=== PATIENT | female | born 1995 | race Caucasian/White ===

== ENCOUNTER 2016-08-24 09:50 | Emergency (ER) | payer BC, MEDICAID ==
[2016-08-24] MEDS ORDERED: Sodium Chloride 0.9% 10 ML Syringe FLUSH PRN (10:06)
[2016-08-24] MEDS ORDERED: Sodium Chloride 0.9% 2.5 ML Syringe FLUSH PRN (10:06)
[2016-08-24] MEDS ORDERED: Sodium Chloride 0.9% 1,000 ML IV SCH (10:15)
[2016-08-24 10:46] LABS: CHLORIDE,CL 111 mmol/L (98-110); SODIUM,NA 141 mmol/L (136-146)
--- NOTE | 2016-08-24 10:47 | EDM.PDOC ---
ED HPI GI/ABDOMINAL - General Chief Complaint: Gastrointestinal Problem Stated Complaint: VOMITING AND BODY ACHES Time Seen by Provider: 08/24/16 09:54 Source of Information: Reports: Patient History Limitations: Reports: No limitations - History of Present Illness INITIAL COMMENTS - FREE TEXT/NARRATIVE: History of present illness: [] Patient started having vomiting and diarrhea last night and has had greater than 10 episodes of vomiting and about 10 episodes of nonbloody watery diarrhea. She has mild abdominal cramping. She is recently and currently is breast feeding. She states she did not measure her temperature but feels like she has had fevers and chills. She's not had any sick contact exposures or eaten any questionable food. Review of systems: As per history of present illness and below otherwise all systems reviewed and negative. Past medical history: As per history of present illness and as reviewed below otherwise noncontributory. Surgical history: As per history of present illness and as reviewed below otherwise noncontributory. Social history: No reported history of drug or alcohol abuse. Family history: As per history of present illness and as reviewed below otherwise noncontributory. Physical exam: General: Well developed, well nourished in NAD HEENT: Atraumatic, normocephalic, pupils reactive, negative for conjunctival pallor or scleral icterus, mucous membranes moist, throat clear, neck supple, nontender, trachea midline. Lungs: Clear to auscultation, breath sounds equal bilaterally, chest nontender. Heart: S1S2, regular, negative for clicks, rubs, or JVD. Abdomen: Soft, nondistended, nontender. Negative for masses or hepatosplenomegaly. Negative for costovertebral tenderness. Pelvis: Stable nontender. Genitourinary: Deferred. Rectal: Deferred. Extremities: Atraumatic, negative for cords or calf pain. Neurovascular unremarkable. Neuro: Awake, alert, oriented. Cranial nerves II through XII unremarkable. Cerebellum unremarkable. Motor and sensory unremarkable throughout. Exam nonfocal. Diagnostics: [] Labs were checked without acute findings Therapeutics: [] Rehydrated with normal saline and Zofran given improvement Impression: [] Acute gastroenteritis Plan: [] Zofran for nausea, increase fluids followup PMD Definitive disposition and diagnosis as appropriate pending reevaluation and review of above. - Related Data Allergies/ADRs: Allergies Allergy/AdvReac Type Severity Reaction Status Date / Time amoxicillin Allergy Anaphylactic Verified 08/24/16 10:03 Shock coconut Allergy Itching Uncoded 11/25/15 19:47 Home Meds: Home Meds Levonorgestrel [Mirena] 1 dose IMPLANT ASDIRECTED 08/24/16 [History] Ondansetron [Zofran ODT] 4 mg PO Q8H PRN #10 tab.dis 08/24/16 [Rx] Past Medical History - Past Health History Medical/Surgical History: Denies Medical/Surgical History Cardiovascular History: Reports: Heart murmur Other Cardiovascular History: hx of pre eclampsia Respiratory History: Reports: Asthma Gastrointestinal History: Reports: None Genitourinary History: Reports: None 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: Musculoskeletal History: Reports: None Neurological History: Reports: None Psychiatric History: Reports: None Endocrine/Metabolic History: Reports: None Other Hematologic History: hx of hemorrhage Immunologic History: Reports: None Oncologic (Cancer) History: Reports: None Dermatologic History: Reports: None - Infectious Disease History Infectious Disease History: Reports: Chicken pox, MRSA - Past Surgical History Head Surgeries/Procedures: Reports: None HEENT Surgical History: Reports: Oral surgery, Tonsillectomy Social & Family History - Family History Family Medical History: Noncontributory HEENT: Reports: None OBGYN: Reports: - Tobacco Use Smoking Status *Q: Current Every Day Smoker Years of Tobacco use: 4 Packs/Tins Daily: 0.5 Used Tobacco, but Quit: No Month Tobacco Last Used: 5 years Second Hand Smoke Exposure: Yes - Caffeine Use Caffeine Use: Reports: None - Alcohol Use Days Per Week of Alcohol Use: 0 - Recreational Drug Use Recreational Drug Use: No ED ROS GENERAL - Review of Systems Review Of Systems: See Below (See history of present illness) ED EXAM, GI/ABD - Physical Exam Exam: See Below (See history of present illness) Course - Vital Signs Last Recorded V/S: Last Vital Signs Temp 36.3 C 08/24/16 10:01 Pulse 101 H 08/24/16 10:01 Resp 16 08/24/16 10:01 BP 121/69 08/24/16 10:01 Pulse Ox 99 08/24/16 10:01 - Orders/Labs/Meds Orders: Active Orders 24 hr Category Date Time Status UA W/MICROSCOPIC [URIN] Stat Lab 08/24/16 11:17 Results Sodium Chloride 0.9% [Normal Saline] 1,000 ml Med 08/24/16 10:15 Active IV .BOLUS Sodium Chloride 0.9% [Saline Flush] Med 08/24/16 10:06 Active 10 ml FLUSH ASDIRECTED PRN Sodium Chloride 0.9% [Saline Flush] Med 08/24/16 10:06 Active 2.5 ml FLUSH ASDIRECTED PRN Peripheral IV Insertion Adult [OM.PC] Stat Oth 08/24/16 10:06 Ordered Medication Orders Sodium Chloride (Normal Saline) 1,000 mls @ 999 mls/hr IV .BOLUS JAMIA Last Admin: 08/24/16 10:21 Dose: 999 mls/hr Sodium Chloride (Saline Flush) 10 ml FLUSH ASDIRECTED PRN PRN Reason: Keep Vein Open Sodium Chloride (Saline Flush) 2.5 ml FLUSH ASDIRECTED PRN PRN Reason: Keep Vein Open Labs: Laboratory Tests 08/24/16 08/24/16 08/24/16 Range/Units 10:17 10:17 11:17 WBC 6.37 (4.0-11.0) K/uL RBC 4.43 (4.30-5.90) M/uL Hgb 11.2 L (12.0-16.0) g/dL Hct 34.9 L (36.0-46.0) % MCV 78.8 L (80.0-98.0) fL MCH 25.3 L (27.0-32.0) pg MCHC 32.1 (31.0-37.0) g/dL RDW Std Deviation 52.6 (28.0-62.0) fl RDW Coeff of Adria 18 H (11.0-15.0) % Plt Count 227 (150-400) K/uL MPV 9.70 (7.40-12.00) fL Neut % (Auto) 83.3 H (48.0-80.0) % Lymph % (Auto) 11.9 L (16.0-40.0) % Pepin % (Auto) 3.9 (0.0-15.0) % Eos % (Auto) 0.6 (0.0-7.0) % Baso % (Auto) 0.3 (0.0-1.5) % Neut # 5.3 (1.4-5.7) K/uL Lymph # 0.8 (0.6-2.4) K/uL Pepin # 0.3 (0.0-0.8) K/uL Eos # 0.0 (0.0-0.7) K/uL Baso # 0.0 (0.0-0.1) K/uL Nucleated RBC % 0.0 /100WBC Nucleated RBCs # 0 K/uL Sodium 141 (136-146) mmol/L Potassium 4.1 (3.5-5.1) mmol/L Chloride 111 H (98-110) mmol/L Carbon Dioxide 21 (21-31) mmol/L BUN 8 (6.0-23.0) mg/dL Creatinine 0.8 (0.6-1.5) mg/dL Est Cr Clr Drug Dosing 91.24 mL/min Estimated GFR (MDRD) > 60.0 ml/min Glucose 96 (60-110) mg/dL Calcium 9.0 (8.8-10.8) mg/dL Total Bilirubin 0.3 (0.1-1.5) mg/dL AST 14 (5-40) IU/L ALT 20 (8-54) IU/L Alkaline Phosphatase 77 (40-150) Total Protein 7.4 (6.0-8.0) g/dL Albumin 4.5 (3.5-5.0) g/dL Globulin 2.9 (2.0-3.5) g/dL Albumin/Globulin Ratio 1.6 (1.3-2.8) Urine Color YELLOW Urine Appearance CLEAR Urine pH 7.0 (5.0-8.0) Ur Specific [place] 1.020 (1.001-1.035) Urine Protein NEGATIVE (NEGATIVE) mg/dL Urine Glucose (UA) NEGATIVE (NEGATIVE) mg/dL Urine Ketones NEGATIVE (NEGATIVE) mg/dL Urine Occult Blood TRACE-INTACT (NEGATIVE) Urine Nitrite NEGATIVE (NEGATIVE) Urine Bilirubin NEGATIVE (NEGATIVE) Urine Urobilinogen 0.2 (<2.0) EU/dL Ur Leukocyte Esterase NEGATIVE (NEGATIVE) Meds: Medications Generic Name Dose Route Start Last Admin Trade Name Freq PRN Reason Stop Dose Admin Sodium Chloride 1,000 mls @ 999 mls/hr 08/24/16 10:15 08/24/16 10:21 Normal Saline IV 999 mls/hr .BOLUS JAMIA Administration Sodium Chloride 10 ml 08/24/16 10:06 Saline Flush FLUSH ASDIRECTED PRN Keep Vein Open Sodium Chloride 2.5 ml 08/24/16 10:06 Saline Flush FLUSH ASDIRECTED PRN Keep Vein Open Departure - Departure Time of Disposition: 11:42 Disposition: Home, Self-Care 01 Condition: good Clinical Impression: AGE (acute gastroenteritis) Prescriptions: Ondansetron [Zofran ODT] 4 mg PO Q8H PRN #10 tab.dis PRN Reason: Nausea Instructions: Viral Gastroenteritis, Adult, [id number] Referrals: Shandra Grimes LINE DECORATOR [Primary Care Provider] - Forms: ED Department Discharge Additional Instructions: The following information is given to patients seen in the emergency department who are being discharged to home. This information is to outline your options for follow-up care. We provide all patients seen in our emergency department with a follow-up referral. The need for follow-up, as well as the timing and circumstances, are variable depending upon the specifics of your emergency department visit. If you don't have a primary care physician on staff, we will provide you with a referral. We always advise you to contact your personal physician following an emergency department visit to inform them of the circumstance of the visit and for follow-up with them and/or the need for any referrals to a consulting specialist. The emergency department will also refer you to a specialist when appropriate. This referral assures that you have the opportunity for follow-up care with a specialist. All of these measure are taken in an effort to provide you with optimal care, which includes your follow-up. Under all circumstances we always encourage you to contact your private physician who remains a resource for coordinating your care. When calling for follow-up care, please make the office aware that this follow-up is from your recent emergency room visit. If for any reason you are refused follow-up, please contact the [facility] Emergency Department at and asked to speak to the emergency department charge nurse. Zofran 4 mg every 8 when necessary [address] [facility] [address] [place] [id number] - My Orders Last 24 Hours: My Active Orders 08/24/16 10:06 Sodium Chloride 0.9% [Saline Flush] 10 ml FLUSH ASDIRECTED PRN Sodium Chloride 0.9% [Saline Flush] 2.5 ml FLUSH ASDIRECTED PRN Peripheral IV Insertion Adult [OM.PC] Stat 08/24/16 10:15 Sodium Chloride 0.9% [Normal Saline] 1,000 ml IV .BOLUS 08/24/16 11:17 UA W/MICROSCOPIC [URIN] Stat - Assessment/Plan Last 24 Hours: My Active Orders 08/24/16 10:06 Sodium Chloride 0.9% [Saline Flush] 10 ml FLUSH ASDIRECTED PRN Sodium Chloride 0.9% [Saline Flush] 2.5 ml FLUSH ASDIRECTED PRN Peripheral IV Insertion Adult [OM.PC] Stat 08/24/16 10:15 Sodium Chloride 0.9% [Normal Saline] 1,000 ml IV .BOLUS 08/24/16 11:17 UA W/MICROSCOPIC [URIN] Stat
[2016-08-24 11:48] VITALS: BP 115/62
== END 2016-08-24 11:50 | disposition home or self-care (01) ==
LOC: MW.ED 09:50
DX: K52.9 Noninfective gastroenteritis and colitis, unspecified (principal); F17.210 Nicotine dependence, cigarettes, uncomplicated; Z88.0 Allergy status to penicillin; Z91.018 Allergy to other foods; Z98.890 Other specified postprocedural states
CPT/HCPCS: 36415; 80053; 81001; 85025; 87804; 96360; 99284; J7040; 99283

== ENCOUNTER 2016-09-26 12:01 | Emergency (ER) | payer BC ==
[2016-09-26] MEDS ORDERED: Ondansetron 4 MG Tab.DIS PO ONE (12:39)
--- NOTE | 2016-09-26 13:17 | EDM.PDOC ---
ED HPI GI/ABDOMINAL - General Chief Complaint: Gastrointestinal Problem Stated Complaint: Diarrhea, vomiting Time Seen by Provider: 09/26/16 12:35 Source of Information: Reports: Patient History Limitations: Reports: No limitations - History of Present Illness INITIAL COMMENTS - FREE TEXT/NARRATIVE: HISTORY AND PHYSICAL: History of present illness: [Patient comes to the emergency room complaining of nausea vomiting and diarrhea since 3 AM this morning. She felt well last evening and when she went to bed. Her symptoms came on suddenly. Her stools are quite watery. She admits to having 10 episodes of vomiting since 3 AM. She's had no fever or chills, chest pain, cough, runny nose shortness of breath or difficulty breathing. She' s not had any infections or illnesses recently. She has 3 children at home none of them have similar symptoms. She and her family ate at home last night and they like the symptoms. She admits to some mild lower abdominal cramping prior to loose stools. No breathing with urination, hematuria or urinary frequency. She is currently breast-feeding her 4-month-old.] Review of systems: As per history of present illness and below otherwise all systems reviewed and negative. Past medical history: As per history of present illness and as reviewed below otherwise noncontributory. Surgical history: As per history of present illness and as reviewed below otherwise noncontributory. Social history: No reported history of drug or alcohol abuse. Family history: As per history of present illness and as reviewed below otherwise noncontributory. Physical exam: HEENT: Atraumatic, normocephalic. TMs are pearly sky and without effusion bilaterally. Oral mucous members are pink and moist. no tonsillar swelling erythema or exudate. Her lips are pink and not cracked. neck supple, nontender, trachea midline. No lymphadenopathy. Lungs: Clear to auscultation, breath sounds equal bilaterally. Heart: S1S2, regular rate rhythm. No murmur click or rub. Abdomen: Bowel sounds are quiet but normal active. Abdomen is Soft, nondistended , nontender. Negative for masses guarding or rebound. Negative for costovertebral tenderness. Genitourinary: Deferred. Rectal: Deferred. Extremities: Atraumatic, negative for cords or calf pain. No cyanosis or edema to feet or lower legs. Neurovascular unremarkable. Neuro: Awake, alert, oriented. Exam nonfocal. Therapeutics: [Zofran ODT 4 mg by mouth] Impression: [Gastroenteritis] Plan: [Patient's nausea completely resolved with one dose of Zofran. Discussed with patient that her symptoms appear to be viral in nature, likely a gastroenteritis. She's given a prescription for Zofran 4 mg ODT #20 sig one by mouth every 6 hours as needed for nausea. zero refills. Push fluids, clear liquid diet and may gradually increase as tolerated. Anticipate that symptoms will completely resolve in the next couple of days without complication. She's agreement with today's plan. All of her questions are answered and concerns are addressed.] Definitive disposition and diagnosis as appropriate pending reevaluation and review of above. - Related Data Allergies/ADRs: Allergies Allergy/AdvReac Type Severity Reaction Status Date / Time amoxicillin Allergy Anaphylactic Verified 09/26/16 12:21 Shock coconut Allergy Itching Uncoded 09/26/16 12:21 Home Meds: Home Meds . 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: Musculoskeletal History: Reports: None Neurological History: Reports: None Psychiatric History: Reports: None Endocrine/Metabolic History: Reports: None Other Hematologic History: hx of hemorrhage Immunologic History: Reports: None Oncologic (Cancer) History: Reports: None Dermatologic History: Reports: None - Infectious Disease History Infectious Disease History: Reports: Chicken pox, MRSA - Past Surgical History Head Surgeries/Procedures: Reports: None HEENT Surgical History: Reports: Oral surgery, Tonsillectomy Social & Family History - Family History Family Medical History: Noncontributory HEENT: Reports: None OBGYN: Reports: - Tobacco Use Smoking Status *Q: Current Every Day Smoker Years of Tobacco use: 3 Packs/Tins Daily: 1 Used Tobacco, but Quit: No Month Tobacco Last Used: 5 years Second Hand Smoke Exposure: Yes - Caffeine Use Caffeine Use: Reports: Coffee - Alcohol Use Days Per Week of Alcohol Use: 0 - Recreational Drug Use Recreational Drug Use: No ED ROS GENERAL - Review of Systems Review Of Systems: ROS reveals no pertinent complaints other than HPI. ED EXAM, GI/ABD - Physical Exam Exam: See Below Course - Vital Signs Last Recorded V/S: Last Vital Signs Temp 97.8 F 09/26/16 12:22 Pulse 92 09/26/16 12:22 Resp 24 H 09/26/16 12:22 BP 126/67 09/26/16 12:22 Pulse Ox 99 09/26/16 12:22 - Orders/Labs/Meds Meds: Medications Discontinued Medications Generic Name Dose Route Start Last Admin Trade Name Jonn PRN Reason Stop Dose Admin Ondansetron HCl 4 mg 09/26/16 12:39 09/26/16 12:57 Zofran Odt PO 09/26/16 12:40 4 mg ONETIME ONE Administration Departure - Departure Time of Disposition: 13:20 Disposition: Home, Self-Care 01 Condition: good Clinical Impression: Gastroenteritis Forms: ED Department Discharge Additional Instructions: The following information is given to patients seen in the emergency department who are being discharged to home. This information is to outline your options for follow-up care. We provide all patients seen in our emergency department with a follow-up referral. The need for follow-up, as well as the timing and circumstances, are variable depending upon the specifics of your emergency department visit. If you don't have a primary care physician on staff, we will provide you with a referral. We always advise you to contact your personal physician following an emergency department visit to inform them of the circumstance of the visit and for follow-up with them and/or the need for any referrals to a consulting specialist. The emergency department will also refer you to a specialist when appropriate. This referral assures that you have the opportunity for follow-up care with a specialist. All of these measure are taken in an effort to provide you with optimal care, which includes your follow-up. Under all circumstances we always encourage you to contact your private physician who remains a resource for coordinating your care. When calling for follow-up care, please make the office aware that this follow-up is from your recent emergency room visit. If for any reason you are refused follow-up, please contact the [facility] emergency department at and asked to speak to the emergency department charge nurse. [facility] [address] [place] [id number] Followup with your primary care provider at the clinic listed above in 48-72 hours. Continue to push fluids until nausea has resolved then you may gradually increase diet. Imodium as needed for diarrhea. Return to ER as needed as discussed.
[2016-09-26 13:29] VITALS: BP 126/70
== END 2016-09-26 13:27 | disposition home or self-care (01) ==
LOC: MW.ED 12:01
DX: K52.9 Noninfective gastroenteritis and colitis, unspecified (principal); F17.210 Nicotine dependence, cigarettes, uncomplicated; Z88.0 Allergy status to penicillin; Z91.018 Allergy to other foods; Z98.890 Other specified postprocedural states; Z90.89 Acquired absence of other organs
CPT/HCPCS: 99283; A9270

== ENCOUNTER 2017-12-04 20:06 | Emergency (ER) | payer BC, MEDICAID ==
--- NOTE | 2017-12-04 20:09 | EDM.PDOC ---
ED HPI GENERAL MEDICAL PROBLEM - General Chief Complaint: Lower Extremity Injury/Pain Stated Complaint: BROKE HER TOE Time Seen by Provider: 12/04/17 20:08 Source of Information: Reports: Patient - History of Present Illness INITIAL COMMENTS - FREE TEXT/NARRATIVE: HISTORY AND PHYSICAL: History of present illness: [Patient presents with left fifth toe pain, she has stubbed. toe into her box spring on her bed a couple of times today, she has bruising and pain to the fifth toe unable to bear weight due to pain No other injury or trauma no fever nausea vomiting chills sweats Review of systems: As per history of present illness and below otherwise all systems reviewed and negative. Past medical history: As per history of present illness and as reviewed below otherwise noncontributory. Surgical history: As per history of present illness and as reviewed below otherwise noncontributory. Social history: No reported history of drug or alcohol abuse. Family history: As per history of present illness and as reviewed below otherwise noncontributory. Physical exam: HEENT: Atraumatic, normocephalic, pupils reactive, negative for conjunctival pallor or scleral icterus, mucous membranes moist, throat clear, neck supple, nontender, trachea midline. Lungs: Clear to auscultation, breath sounds equal bilaterally, chest nontender. Heart: S1S2, regular, negative for clicks, rubs, or JVD. Abdomen: Soft, nondistended, nontender. Negative for masses or hepatosplenomegaly. Negative for costovertebral tenderness. Pelvis: Stable nontender. Genitourinary: Deferred. Rectal: Deferred. Extremities: Atraumatic, negative for cords or calf pain. Neurovascular unremarkable. Neuro: Awake, alert, oriented. Cranial nerves II through XII unremarkable. Cerebellum unremarkable. Motor and sensory unremarkable throughout. Exam nonfocal. Diagnostics: [Left foot complete ] Therapeutics: [Postop shoe/selma tape Rest ice ibuprofen Tramadol Crutches as needed ] Impression: [Fracture fifth toe ] Definitive disposition and diagnosis as appropriate pending reevaluation and review of above. Left 5-Little toe Pain Score (Numeric/FACES): 10 - Related Data Allergies Allergy/AdvReac Type Severity Reaction Status Date / Time amoxicillin Allergy Anaphylactic Verified 09/26/16 12:21 Shock coconut Allergy Itching Uncoded 09/26/16 12:21 Home Meds: Home Meds . 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: Musculoskeletal History: Reports: None Neurological History: Reports: None Psychiatric History: Reports: None Endocrine/Metabolic History: Reports: None Other Hematologic History: hx of hemorrhage Immunologic History: Reports: None Oncologic (Cancer) History: Reports: None Dermatologic History: Reports: None - Infectious Disease History Infectious Disease History: Reports: Chicken Pox, MRSA - Past Surgical History HEENT Surgical History: Reports: Oral Surgery, Tonsillectomy Social & Family History - Family History Family Medical History: Noncontributory HEENT: Reports: None OBGYN: Reports: - Caffeine Use Caffeine Use: Reports: Coffee Review of Systems - Review of Systems Review Of Systems: See Below ED EXAM, GENERAL - Physical Exam Exam: See Below Course - Vital Signs Last Recorded V/S: Last Vital Signs Temp 97.8 F 12/04/17 20:24 Pulse 105 H 12/04/17 20:24 Resp 18 12/04/17 20:24 BP 129/88 12/04/17 20:24 Pulse Ox 98 12/04/17 20:24 - Orders/Labs/Meds Orders: Active Orders 24 hr Category Date Time Status Foot Comp Min 3V Lt [CR] Stat Exams 12/04/17 20:08 Taken Departure - Departure Time of Disposition: 21:09 Disposition: Home, Self-Care 01 Condition: Good Clinical Impression: Toe fracture, left - Discharge Information Forms: ED Department Discharge Additional Instructions: Postop shoe/crutches when necessary/selma tape Rest Ice 20 minute intervals 3 times daily as needed Ibuprofen 400 mg 3 times daily 7-10 daMedication as prescribed Follow-up with orthopedist, call number below to schedule appropriate follow- up [facility] [address], [address] [place] [address] my orthopedic The following information is given to patients seen in the emergency department who are being discharged to home. This information is to outline your options for follow-up care. We provide all patients seen in our emergency department with a follow-up referral. The need for follow-up, as well as the timing and circumstances, are variable depending upon the specifics of your emergency department visit. If you don't have a primary care physician on staff, we will provide you with a referral. We always advise you to contact your personal physician following an emergency department visit to inform them of the circumstance of the visit and for follow-up with them and/or the need for any referrals to a consulting specialist. The emergency department will also refer you to a specialist when appropriate. This referral assures that you have the opportunity for follow-up care with a specialist. All of these measure are taken in an effort to provide you with optimal care, which includes your follow-up. Under all circumstances we always encourage you to contact your private physician who remains a resource for coordinating your care. When calling for follow-up care, please make the office aware that this follow-up is from your recent emergency room visit. If for any reason you are refused follow-up, please contact the [facility] emergency department at and asked to speak to the emergency department charge nurse. - My Orders Last 24 Hours: My Active Orders 12/04/17 20:08 Foot Comp Min 3V Lt [CR] Stat - Assessment/Plan Last 24 Hours: My Active Orders 12/04/17 20:08 Foot Comp Min 3V Lt [CR] Stat
[2017-12-04] MEDS ORDERED: traMADol 50 MG Tab PO ONE (21:11)
[2017-12-04 21:45] VITALS: BP 129/78
--- NOTE | 2017-12-05 16:19 | CR ---
EXAM DATE: 12/04/17 PATIENT'S AGE: 22 Patient: MARITA DELUNA Facility: [place], [place] Site . Site : 1995 Study: XRay Extremity Left foot [id number]/[id number] 8:52:19 PM Ordering Physician: Lizbeth Rodas Final Report: INDICATION: Foot injury. TECHNIQUE: Three views left foot. COMPARISON: None FINDINGS: Bones: No acute fracture. No dislocation. No suspicious bone lesion. Joint spaces: Unremarkable. Soft tissues: Unremarkable. IMPRESSION: No acute osseous abnormality. Dictated by Modesto Dixon MD @ Dec 04 2017 9:03PM (Electronic Signature) Report Signed by Proxy. KARI
== END 2017-12-04 21:36 | disposition home or self-care (01) ==
LOC: MW.ED 20:06
DX: S92.502A Displaced unspecified fracture of left lesser toe(s), initial encounter for closed fracture (principal); Z88.1 Allergy status to other antibiotic agents; Z91.048 Other nonmedicinal substance allergy status; W22.8XXA Striking against or struck by other objects, initial encounter
CPT/HCPCS: 73630-26-LT; 73630-LT; 99282; 99283

== ENCOUNTER 2018-02-21 15:30 | Emergency (ER) | payer BC ==
[2018-02-21 15:56] VITALS: BP 101/73
[2018-02-21] MEDS ORDERED: Ondansetron 4 MG/2 ML SDV IVPUSH ONE (16:02)
[2018-02-21] MEDS ORDERED: Sodium Chloride 0.9% 1,000 ML IV ONE (16:02)
--- NOTE | 2018-02-21 16:31 | EDM.PDOC ---
ED HPI GENERAL MEDICAL PROBLEM - General Chief Complaint: General Stated Complaint: 7 WKS PRAG AND CANT KEEP ANYTHING DOWN Time Seen by Provider: 02/21/18 15:48 Source of Information: Reports: Patient History Limitations: Reports: No Limitations - History of Present Illness INITIAL COMMENTS - FREE TEXT/NARRATIVE: HISTORY AND PHYSICAL: History of present illness: Patient is a 23-year-old female who presents to the emergency room today with complaints of nausea and vomiting during . Patient reports she is approximately 7 weeks and does see [facility] the [facility]. She offers no other systemic complaints. She denies any fever, chills, chest pain, shortness of breath or cough. Denies any abdominal pain, nausea, vomiting, diarrhea or dysuria. Denies any vaginal bleeding or cramping. 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 She was concerned she may be dehydrated and was "tired of the vomiting". LMP January 01, 2018. , P: 3 Primary OBGYN: Kaykay Martinez Nurse Inspector Tubes Review of systems: As per history of present illness and below otherwise all systems reviewed and negative. Past medical history: As per history of present illness and as reviewed below otherwise noncontributory. Surgical history: As per history of present illness and as reviewed below otherwise noncontributory. Social history: No reported history of drug or alcohol abuse. Family history: As per history of present illness and as reviewed below otherwise noncontributory. Physical exam: General: Well-developed and well-nourished 23-year-old female. Alert and oriented. Nontoxic appearing and in no acute distress. HEENT: Atraumatic, normocephalic, pupils equal and reactive bilaterally, negative for conjunctival pallor or scleral icterus, mucous membranes moist, throat clear, neck supple, nontender, trachea midline. No drooling or trismus noted. No meningeal signs Lungs: Clear to auscultation, breath sounds equal bilaterally, chest nontender. Heart: S1S2, regular rate and rhythm without overt murmur Abdomen: Soft, nondistended, nontender. Negative for masses or hepatosplenomegaly. Negative for costovertebral tenderness. Pelvis: Stable nontender. Genitourinary: Deferred. Rectal: Deferred. Skin: Intact, warm, dry. No lesions or rashes noted. Extremities: Atraumatic, negative for cords or calf pain. Neurovascular unremarkable. Neuro: Awake, alert, oriented. Cranial nerves II through XII unremarkable. Cerebellum unremarkable. Motor and sensory unremarkable throughout. Exam nonfocal. Notes: Patient states other than the nausea and vomiting she has no other health concerns at this time. I will do IV fluids and Zofran. Do not feel a need for or labs at this time. She states she has had morning sickness with her previous pregnancies. Vital signs are stable. Patient feels somewhat improved after receiving IV fluids and Zofran. She states she does have some Zofran, tablet formula, at home but is unable to keep these down. She is requesting that I give her Zofran ODT. These will be electronically sent in the pharmacy. She states she is ready for discharged and will follow up with Kaykay Ramírez within the next couple days. Denies any further questions or concerns at this time. Diagnostics: None Therapeutics: IV fluids, Zofran Prescription: Zofran ODT PRN, #15 Impression: Nausea and Vomiting in 1st Trimester Plan: 1. Small frequent sips of fluids to prevent dehydration 2. Tylenol as needed for pain 3. Follow up with Kaykay Martinez as arranged or sooner if needed. Return to the ED as needed and as discussed. Definitive disposition and diagnosis as appropriate pending reevaluation and review of above. Onset: Today - Related Data Allergies Allergy/AdvReac Type Severity Reaction Status Date / Time amoxicillin Allergy Anaphylactic Verified 02/21/18 15:41 Shock coconut Allergy Itching Uncoded 02/21/18 15:41 Home Meds: Home Meds Ondansetron [Zofran ODT] 4 mg PO DAILY 02/21/18 [History] Ondansetron [Zofran ODT] 4 mg PO Q6H PRN #15 tab.dis 02/21/18 [Rx] Past Medical History - Past Health History Medical/Surgical History: Denies Medical/Surgical History Cardiovascular History: Reports: Heart Failure, Heart Murmur Other Cardiovascular History: hx of pre eclampsia Respiratory History: Reports: Asthma Gastrointestinal History: Reports: None Genitourinary History: Reports: None WASTE TREATMENT OPERATOR History: Reports: Musculoskeletal History: Reports: None Neurological History: Reports: None Psychiatric History: Reports: None Endocrine/Metabolic History: Reports: None Other Hematologic History: hx of hemorrhage Immunologic History: Reports: None Oncologic (Cancer) History: Reports: None Dermatologic History: Reports: None - Infectious Disease History Infectious Disease History: Reports: MRSA - Past Surgical History Head Surgeries/Procedures: Reports: None HEENT Surgical History: Reports: Oral Surgery, Tonsillectomy Cardiovascular Surgical History: Reports: None GI Surgical History: Reports: None Female Surgical History: Reports: None Social & Family History - Family History Family Medical History: Noncontributory HEENT: Reports: None OBGYN: Reports: - Tobacco Use Smoking Status *Q: Current Every Day Smoker Years of Tobacco use: 6 Packs/Tins Daily: 0.5 Second Hand Smoke Exposure: Yes - Caffeine Use Caffeine Use: Reports: Coffee, Soda - Recreational Drug Use Recreational Drug Use: No ED ROS GENERAL - Review of Systems Review Of Systems: ROS reveals no pertinent complaints other than HPI. ED EXAM, GENERAL - Physical Exam Exam: See Below (See dictation) Course - Vital Signs Last Recorded V/S: Last Vital Signs Temp 97.6 F 02/21/18 15:42 Pulse 88 02/21/18 15:42 Resp 14 02/21/18 15:42 BP 101/73 02/21/18 15:56 Pulse Ox 99 02/21/18 15:42 - Orders/Labs/Meds Meds: Medications Discontinued Medications Generic Name Dose Route Start Last Admin Trade Name Freq PRN Reason Stop Dose Admin Sodium Chloride 1,000 mls @ 999 mls/hr 02/21/18 16:02 02/21/18 16:33 Normal Saline IV 02/21/18 17:02 999 mls/hr STAT ONE Administration Ondansetron HCl 4 mg 02/21/18 16:02 02/21/18 16:33 Zofran IVPUSH 02/21/18 16:03 4 mg ONETIME ONE Administration Departure - Departure Time of Disposition: 16:27 Disposition: Home, Self-Care 01 Clinical Impression: Nausea and vomiting in - Discharge Information Prescriptions: Ondansetron [Zofran ODT] 4 mg PO Q6H PRN #15 tab.dis PRN Reason: Nausea Instructions: Morning Sickness, [id number] Referrals: PCP,None [Primary Care Provider] - Forms: ED Department Discharge Additional Instructions: The following information is given to patients seen in the emergency department who are being discharged to home. This information is to outline your options for follow-up care. We provide all patients seen in our emergency department with a follow-up referral. The need for follow-up, as well as the timing and circumstances, are variable depending upon the specifics of your emergency department visit. If you don't have a primary care physician on staff, we will provide you with a referral. We always advise you to contact your personal physician following an emergency department visit to inform them of the circumstance of the visit and for follow-up with them and/or the need for any referrals to a consulting specialist. The emergency department will also refer you to a specialist when appropriate. This referral assures that you have the opportunity for follow-up care with a specialist. All of these measure are taken in an effort to provide you with optimal care, which includes your follow-up. Under all circumstances we always encourage you to contact your private physician who remains a resource for coordinating your care. When calling for follow-up care, please make the office aware that this follow-up is from your recent emergency room visit. If for any reason you are refused follow-up, please contact the [facility] Emergency Department at and asked to speak to the emergency department charge nurse. [facility] Primary Care: [facility] [address] [place] [phone] 1. Small frequent sips of fluids to prevent dehydration 2. Tylenol as needed for pain 3. Follow up with Kaykay Martinez as arranged or sooner if needed. Return to the ED as needed and as discussed.
== END 2018-02-21 17:44 | disposition home or self-care (01) ==
LOC: MW.ED 15:30
DX: O21.9 Vomiting of pregnancy, unspecified (principal); O99.411 Diseases of the circulatory system complicating pregnancy, first trimester; I50.9 Heart failure, unspecified; O99.331 Smoking (tobacco) complicating pregnancy, first trimester; F17.210 Nicotine dependence, cigarettes, uncomplicated; Z88.1 Allergy status to other antibiotic agents; Z91.018 Allergy to other foods; Z3A.01 Less than 8 weeks gestation of pregnancy
CPT/HCPCS: 96361; 96374; 99283; J2405; J7040

== ENCOUNTER 2018-03-02 14:56 | Emergency (ER) | payer BC ==
[2018-03-02] MEDS ORDERED: Sodium Chloride 0.9% 10 ML Syringe FLUSH PRN (15:29)
[2018-03-02] MEDS ORDERED: Sodium Chloride 0.9% 2.5 ML Syringe FLUSH PRN (15:29)
[2018-03-02] MEDS ORDERED: Sodium Chloride 0.9% 1,000 ML IV ONE (15:30)
--- NOTE | 2018-03-02 15:38 | EDM.PDOC ---
ED HPI GENERAL MEDICAL PROBLEM - General Chief Complaint: Syncope Stated Complaint: PASSED OUT Time Seen by Provider: 03/02/18 15:05 Source of Information: Reports: Patient History Limitations: Reports: No Limitations - History of Present Illness INITIAL COMMENTS - FREE TEXT/NARRATIVE: History of present illness: []Patient was showering this morning got soap in her eyes and then passed out. She states she woke up slumped over the rim of the tub. She complains of lower abdominal pain and she is weeks . Patient states she has a headache She denies any vaginal bleeding, vomiting, diarrhea or recent illnesses. She was here last week with dehydration and hyperemesis. Review of systems: As per history of present illness and below otherwise all systems reviewed and negative. Past medical history: As per history of present illness and as reviewed below otherwise noncontributory. Surgical history: As per history of present illness and as reviewed below otherwise noncontributory. Social history: No reported history of drug or alcohol abuse. Family history: As per history of present illness and as reviewed below otherwise noncontributory. Physical exam: General: Well developed, well nourished in NAD HEENT: Atraumatic, normocephalic, pupils reactive, negative for conjunctival pallor or scleral icterus, mucous membranes moist, throat clear, neck supple, nontender, trachea midline. Lungs: Clear to auscultation, breath sounds equal bilaterally, chest nontender. Heart: S1S2, regular, negative for clicks, rubs, or JVD. Abdomen: Soft, nondistended, nontender. Negative for masses or hepatosplenomegaly. Negative for costovertebral tenderness. Pelvis: Stable nontender. Genitourinary: Deferred. Rectal: Deferred. Extremities: Atraumatic, negative for cords or calf pain. Neurovascular unremarkable. Neuro: Awake, alert, oriented. Cranial nerves II through XII unremarkable. Cerebellum unremarkable. Motor and sensory unremarkable throughout. Exam nonfocal. Skin:warm and dry Diagnostics: CBC, CMP, UA, hCG Quant, the statics, ultrasound OB limited Therapeutics: IV fluids ED Course: Unremarkable Impression: Vasovagal syncope Prescriptions: None Plan: Follow up with OB as directed. Definitive disposition and diagnosis as appropriate pending reevaluation and review of above. head Pain Score (Numeric/FACES): 6 - Related Data Allergies Allergy/AdvReac Type Severity Reaction Status Date / Time amoxicillin Allergy Anaphylactic Verified 03/02/18 15:10 Shock coconut Allergy Itching Uncoded 03/02/18 15:10 Home Meds: Home Meds Ondansetron [Zofran ODT] 4 mg PO Q6H PRN #15 tab.dis 02/21/18 [Rx] Xlb703/FA/Omega3/Dha/Fish Oil [ Gummies] 1 each PO DAILY 03/02/18 [ History] Past Medical History - Past Health History Medical/Surgical History: Denies Medical/Surgical History Cardiovascular History: Reports: Heart Failure, Heart Murmur Other Cardiovascular History: hx of pre eclampsia Respiratory History: Reports: Asthma Gastrointestinal History: Reports: None Genitourinary History: Reports: None 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: Reports: Musculoskeletal History: Reports: None Neurological History: Reports: None Psychiatric History: Reports: None Endocrine/Metabolic History: Reports: None Other Hematologic History: hx of hemorrhage Immunologic History: Reports: None Oncologic (Cancer) History: Reports: None Dermatologic History: Reports: None - Infectious Disease History Infectious Disease History: Reports: None - Past Surgical History Head Surgeries/Procedures: Reports: None HEENT Surgical History: Reports: Oral Surgery, Tonsillectomy Cardiovascular Surgical History: Reports: None GI Surgical History: Reports: None Female Surgical History: Reports: None Social & Family History - Family History Family Medical History: Noncontributory HEENT: Reports: None OBGYN: Reports: - Tobacco Use Smoking Status *Q: Current Every Day Smoker Years of Tobacco use: 14 Packs/Tins Daily: 0.5 - Caffeine Use Caffeine Use: Reports: Coffee, Soda - Recreational Drug Use Recreational Drug Use: No ED ROS GENERAL - Review of Systems Review Of Systems: ROS reveals no pertinent complaints other than HPI. ED EXAM - Physical Exam Exam: See Below (See history of present illness) Course - Vital Signs Last Recorded V/S: Last Vital Signs Temp 96.4 F 03/02/18 15:12 Pulse 93 03/02/18 15:12 Resp 20 03/02/18 15:12 BP 130/71 03/02/18 15:12 Pulse Ox 99 03/02/18 15:12 Orthostatic Blood Pressure [ 123/66 Sitting] Orthostatic Blood Pressure [ 115/60 Supine] Orthostatic Blood Pressure [ 123/73 Standing] - Orders/Labs/Meds Orders: Active Orders 24 hr Category Date Time Status EKG Documentation Completion [RC] STAT Care 03/02/18 15:36 Active Orthostatic Vital Signs [RC] ASDIRECTED Care 03/02/18 15:35 Active OB Ltd 1 or More Fetus [US] Stat Exams 03/02/18 15:29 Taken Sodium Chloride 0.9% [Saline Flush] Med 03/02/18 15:29 Active 10 ml FLUSH ASDIRECTED PRN Sodium Chloride 0.9% [Saline Flush] Med 03/02/18 15:29 Active 2.5 ml FLUSH ASDIRECTED PRN Saline Lock Insert [OM.PC] Stat Oth 03/02/18 15:28 Ordered Medication Orders Sodium Chloride (Saline Flush) 10 ml FLUSH ASDIRECTED PRN PRN Reason: Keep Vein Open Sodium Chloride (Saline Flush) 2.5 ml FLUSH ASDIRECTED PRN PRN Reason: Keep Vein Open Labs: Laboratory Tests 03/02/18 03/02/18 03/02/18 Range/Units 15:20 15:20 15:26 WBC 10.59 (4.0-11.0) K/uL RBC 4.44 (4.30-5.90) M/uL Hgb 14.3 (12.0-16.0) g/dL Hct 39.8 (36.0-46.0) % MCV 89.6 (80.0-98.0) fL MCH 32.2 H (27.0-32.0) pg MCHC 35.9 (31.0-37.0) g/dL RDW Std Deviation 42.1 (28.0-62.0) fl RDW Coeff of Adria 13 (11.0-15.0) % Plt Count 237 (150-400) K/uL MPV 9.50 (7.40-12.00) fL Neut % (Auto) 74.0 (48.0-80.0) % Lymph % (Auto) 19.4 (16.0-40.0) % [place] % (Auto) 5.5 (0.0-15.0) % Eos % (Auto) 0.8 (0.0-7.0) % Baso % (Auto) 0.3 (0.0-1.5) % Neut # (Auto) 7.8 H (1.4-5.7) K/uL Lymph # (Auto) 2.1 (0.6-2.4) K/uL [place] # (Auto) 0.6 (0.0-0.8) K/uL Eos # (Auto) 0.1 (0.0-0.7) K/uL Baso # (Auto) 0.0 (0.0-0.1) K/uL Nucleated RBC % 0.0 /100WBC Nucleated RBCs # 0 K/uL Sodium 137 (136-145) mmol/L Potassium 3.9 (3.5-5.1) mmol/L Chloride 103 (98-107) mmol/L Carbon Dioxide 20.7 L (21.0-32.0) mmol/L BUN 7 (7.0-18.0) mg/dL Creatinine 0.8 (0.6-1.0) mg/dL Est Cr Clr Drug Dosing 89.70 mL/min Estimated GFR (MDRD) > 60.0 ml/min Glucose 89 (74-106) mg/dL POC Glucose 98 (60-110) mg/dL Calcium 9.3 (8.5-10.1) mg/dL Total Bilirubin 0.1 L (0.2-1.0) mg/dL AST 14 L (15-37) IU/L ALT 25 (14-63) IU/L Alkaline Phosphatase 60 (46-116) U/L Total Protein 7.4 (6.4-8.2) g/dL Albumin 4.1 (3.4-5.0) g/dL Globulin 3.3 (2.0-3.5) g/dL Albumin/Globulin Ratio 1.2 L (1.3-2.8) HCG, Quant 10109.0 mIU/mL Urine Color Urine Appearance Urine pH (5.0-8.0) Ur Specific [place] (1.001-1.035) Urine Protein (NEGATIVE) mg/dL Urine Glucose (UA) (NEGATIVE) mg/dL Urine Ketones (NEGATIVE) mg/dL Urine Occult Blood (NEGATIVE) Urine Nitrite (NEGATIVE) Urine Bilirubin (NEGATIVE) Urine Urobilinogen (<2.0) EU/dL Ur Leukocyte Esterase (NEGATIVE) Urine RBC (0-2/HPF) Urine WBC (0-5/HPF) Ur Epithelial Cells (NONE-FEW) Amorphous Sediment (NEGATIVE) Urine Bacteria (NEGATIVE) Urine Mucus (NONE-MOD) 03/02/18 Range/Units 15:45 WBC (4.0-11.0) K/uL RBC (4.30-5.90) M/uL Hgb (12.0-16.0) g/dL Hct (36.0-46.0) % MCV (80.0-98.0) fL MCH (27.0-32.0) pg MCHC (31.0-37.0) g/dL RDW Std Deviation (28.0-62.0) fl RDW Coeff of Adria (11.0-15.0) % Plt Count (150-400) K/uL MPV (7.40-12.00) fL Neut % (Auto) (48.0-80.0) % Lymph % (Auto) (16.0-40.0) % [place] % (Auto) (0.0-15.0) % Eos % (Auto) (0.0-7.0) % Baso % (Auto) (0.0-1.5) % Neut # (Auto) (1.4-5.7) K/uL Lymph # (Auto) (0.6-2.4) K/uL [place] # (Auto) (0.0-0.8) K/uL Eos # (Auto) (0.0-0.7) K/uL Baso # (Auto) (0.0-0.1) K/uL Nucleated RBC % /100WBC Nucleated RBCs # K/uL Sodium (136-145) mmol/L Potassium (3.5-5.1) mmol/L Chloride (98-107) mmol/L Carbon Dioxide (21.0-32.0) mmol/L BUN (7.0-18.0) mg/dL Creatinine (0.6-1.0) mg/dL Est Cr Clr Drug Dosing mL/min Estimated GFR (MDRD) ml/min Glucose (74-106) mg/dL POC Glucose (60-110) mg/dL Calcium (8.5-10.1) mg/dL Total Bilirubin (0.2-1.0) mg/dL AST (15-37) IU/L ALT (14-63) IU/L Alkaline Phosphatase (46-116) U/L Total Protein (6.4-8.2) g/dL Albumin (3.4-5.0) g/dL Globulin (2.0-3.5) g/dL Albumin/Globulin Ratio (1.3-2.8) HCG, Quant mIU/mL Urine Color YELLOW Urine Appearance SLT CLOUDY Urine pH 7.0 (5.0-8.0) Ur Specific [place] 1.020 (1.001-1.035) Urine Protein NEGATIVE (NEGATIVE) mg/dL Urine Glucose (UA) NEGATIVE (NEGATIVE) mg/dL Urine Ketones NEGATIVE (NEGATIVE) mg/dL Urine Occult Blood NEGATIVE (NEGATIVE) Urine Nitrite NEGATIVE (NEGATIVE) Urine Bilirubin NEGATIVE (NEGATIVE) Urine Urobilinogen 0.2 (<2.0) EU/dL Ur Leukocyte Esterase NEGATIVE (NEGATIVE) Urine RBC 0-3 (0-2/HPF) Urine WBC 1-3 (0-5/HPF) Ur Epithelial Cells FEW (NONE-FEW) Amorphous Sediment FEW (NEGATIVE) Urine Bacteria FEW (NEGATIVE) Urine Mucus FEW (NONE-MOD) Meds: Medications Generic Name Dose Route Start Last Admin Trade Name Freq PRN Reason Stop Dose Admin Sodium Chloride 10 ml 03/02/18 15:29 Saline Flush FLUSH ASDIRECTED PRN Keep Vein Open Sodium Chloride 2.5 ml 03/02/18 15:29 Saline Flush FLUSH ASDIRECTED PRN Keep Vein Open Discontinued Medications Generic Name Dose Route Start Last Admin Trade Name Freq PRN Reason Stop Dose Admin Sodium Chloride 1,000 mls @ 999 mls/hr 03/02/18 15:30 03/02/18 15:41 Normal Saline IV 03/02/18 16:30 999 mls/hr .Bolus ONE Administration Departure - Departure Time of Disposition: 17:47 Disposition: Home, Self-Care 01 Condition: Good Clinical Impression: Vasovagal syncope - Discharge Information *PRESCRIPTION DRUG MONITORING PROGRAM REVIEWED*: No *COPY OF PRESCRIPTION DRUG MONITORING REPORT IN PATIENT AGUILA: No Referrals: PCP,None [Primary Care Provider] - Forms: ED Department Discharge Additional Instructions: The following information is given to patients seen in the emergency department who are being discharged to home. This information is to outline your options for follow-up care. We provide all patients seen in our emergency department with a follow-up referral. The need for follow-up, as well as the timing and circumstances, are variable depending upon the specifics of your emergency department visit. If you don't have a primary care physician on staff, we will provide you with a referral. We always advise you to contact your personal physician following an emergency department visit to inform them of the circumstance of the visit and for follow-up with them and/or the need for any referrals to a consulting specialist. The emergency department will also refer you to a specialist when appropriate. This referral assures that you have the opportunity for follow-up care with a specialist. All of these measure are taken in an effort to provide you with optimal care, which includes your follow-up. Under all circumstances we always encourage you to contact your private physician who remains a resource for coordinating your care. When calling for follow-up care, please make the office aware that this follow-up is from your recent emergency room visit. If for any reason you are refused follow-up, please contact the [facility] Emergency Department at and asked to speak to the emergency department charge nurse. [facility] Primary Care [address] [place] [id number] [facility] Primary Care - Women[facility] [address] [place] [phone] - My Orders Last 24 Hours: My Active Orders 03/02/18 15:28 Saline Lock Insert [OM.PC] Stat 03/02/18 15:29 OB Ltd 1 or More Fetus [US] Stat Sodium Chloride 0.9% [Saline Flush] 10 ml FLUSH ASDIRECTED PRN Sodium Chloride 0.9% [Saline Flush] 2.5 ml FLUSH ASDIRECTED PRN 03/02/18 15:35 Orthostatic Vital Signs [RC] ASDIRECTED 03/02/18 15:36 EKG Documentation Completion [RC] STAT - Assessment/Plan Last 24 Hours: My Active Orders 03/02/18 15:28 Saline Lock Insert [OM.PC] Stat 03/02/18 15:29 OB Ltd 1 or More Fetus [US] Stat Sodium Chloride 0.9% [Saline Flush] 10 ml FLUSH ASDIRECTED PRN Sodium Chloride 0.9% [Saline Flush] 2.5 ml FLUSH ASDIRECTED PRN 03/02/18 15:35 Orthostatic Vital Signs [RC] ASDIRECTED 03/02/18 15:36 EKG Documentation Completion [RC] STAT
[2018-03-02 17:15] LABS: CHLORIDE,CL 103 mmol/L (98-107); SODIUM,NA 137 mmol/L (136-145)
[2018-03-02 18:01] VITALS: BP 123/87
--- NOTE | 2018-03-03 12:39 | US ---
EXAM DATE: 03/02/18 PATIENT'S AGE: 23 Patient: MARITA JEREZ Facility: [place], [place] Site . Site : [id number] Study: US OB Pelvis [id number] 4:32:14 PM Ordering Physician: Sameer Alonzo Final Report: INDICATION: Pain following fall. TECHNIQUE: Ultrasound OB pelvis transvaginal. Real time sky scale imaging of the pelvis was performed. COMPARISON: A size FINDINGS: LMP: 01/02/2018 Gestational age by LMP: 8 weeks 3 days Estimated due date by LMP: 10/09/2018 Sonographic imaging demonstrates a single living intrauterine gestation. The embryo demonstrates a regular cardiac rate measuring 157 beats per minute. The embryo`s crown rump length measurement of 1.63 cm corresponds to a gestational age of 8 weeks 0 days with a sonographic due date of 10/12/2018. There is a normal appearing yolk sac. There are no gross abnormalities noted within the embryo at this early state of development. The placenta has not yet developed. The gestational sac has a normal appearance and there is no evidence of a perigestational hemorrhage. The amount of fluid within the sac appears appropriate for gestational age. The cervix is closed. The myometrium appears normal. The ovaries are of normal size. Possible corpus luteal cyst left ovary. There are no suspicious fluid collections noted in the cul-de-sac. IMPRESSION: Single intrauterine with crown-rump length consistent with a gestational age of 8 weeks 0 days. heart rate 157 beats per minute. No gross abnormalities. Dictated by Aden Crabtree MD @ 03/02/2018 5:44:30 PM Dictated by: Aden Crabtree MD @ 03/02/2018 17:44:38 (Electronic Signature) Report Signed by Proxy. KARI
== END 2018-03-02 17:59 | disposition home or self-care (01) ==
LOC: MW.ED 14:56
DX: O99.89 Other specified diseases and conditions complicating pregnancy, childbirth and the puerperium (principal); R55 Syncope and collapse; O99.331 Smoking (tobacco) complicating pregnancy, first trimester; F17.210 Nicotine dependence, cigarettes, uncomplicated; Z88.1 Allergy status to other antibiotic agents; Z91.018 Allergy to other foods; Z79.899 Other long term (current) drug therapy; Z3A.08 8 weeks gestation of pregnancy
CPT/HCPCS: 36415; 76815; 80053; 81001; 82962; 84702; 85025; 93005; 96360; 99284; J7040

== ENCOUNTER 2018-07-11 14:05 | Emergency (ER) | payer BC ==
[2018-07-11 14:21] VITALS: BP 140/73
--- NOTE | 2018-07-11 14:52 | EDM.PDOC ---
ED HPI GENERAL MEDICAL PROBLEM - General Chief Complaint: CORRECTIONS CORPORAL Problem Stated Complaint: FELL DOWN STAIRS. 26 WEEKS PREG. Time Seen by Provider: 07/11/18 14:51 Source of Information: Reports: Patient - History of Present Illness INITIAL COMMENTS - FREE TEXT/NARRATIVE: HISTORY AND PHYSICAL: History of present illness: [Patient with 27 weeks IUP presents after sliding down stairs on her belly, approximately 10 steps She has no pain or injury but is concerned about baby with checked heart tones rate 140 she has no bruising or pain no cramping no vaginal fluid leakage bleeding spotting or discharge no low back pain no sensation or urge to push head injury or loss of consciousness ] Review of systems: As per history of present illness and below otherwise all systems reviewed and negative. Past medical history: As per history of present illness and as reviewed below otherwise noncontributory. Surgical history: As per history of present illness and as reviewed below otherwise noncontributory. Social history: No reported history of drug or alcohol abuse. Family history: As per history of present illness and as reviewed below otherwise noncontributory. Physical exam: HEENT: Atraumatic, normocephalic, pupils reactive, negative for conjunctival pallor or scleral icterus, mucous membranes moist, throat clear, neck supple, nontender, trachea midline. Lungs: Clear to auscultation, breath sounds equal bilaterally, chest nontender. Heart: S1S2, regular, negative for clicks, rubs, or JVD. Abdomen: Soft, nondistended, nontender. Negative for masses or hepatosplenomegaly. Negative for costovertebral tenderness. fundus consistent with dates Pelvis: Stable nontender. Genitourinary: Deferred. Rectal: Deferred. Extremities: Atraumatic, negative for cords or calf pain. Neurovascular unremarkable. Neuro: Awake, alert, oriented. Cranial nerves II through XII unremarkable. Cerebellum unremarkable. Motor and sensory unremarkable throughout. Exam nonfocal. Diagnostics: [Clinical non-Stress testing via OB check ] Therapeutics: []The counter symptomatic therapies Impression: Medical screening exam [Fall 27 weeks with IUP ] heart tones 140s Definitive disposition and diagnosis as appropriate pending reevaluation and review of above. lower badomen Pain Score (Numeric/FACES): 5 - Related Data Allergies Allergy/AdvReac Type Severity Reaction Status Date / Time amoxicillin Allergy Anaphylactic Verified 07/11/18 14:14 Shock coconut Allergy Itching Uncoded 05/18/18 14:14 Home Meds: Home Meds Xob485/FA/Omega3/Dha/Fish Oil [ Gummies] 1 each PO DAILY 03/02/18 [ History] Ondansetron [Zofran ODT] 4 mg PO Q4H PRN #10 tab.dis 05/18/18 [Rx] Sertraline [Zoloft] 1 tab PO DAILY 05/18/18 [History] Past Medical History - Past Health History Medical/Surgical History: Denies Medical/Surgical History HEENT History: Reports: None Cardiovascular History: Reports: Heart Murmur Other Cardiovascular History: hx of pre eclampsia Respiratory History: Reports: Asthma Gastrointestinal History: Reports: None Genitourinary History: Reports: None CORRECTIONS CORPORAL History: Reports: Musculoskeletal History: Reports: None Neurological History: Reports: None Psychiatric History: Reports: Depression Endocrine/Metabolic History: Reports: None Hematologic History: Reports: Other (See Below) Other Hematologic History: hx of hemorrhage Immunologic History: Reports: None Oncologic (Cancer) History: Reports: None Dermatologic History: Reports: None - Infectious Disease History Infectious Disease History: Reports: MRSA - Past Surgical History Head Surgeries/Procedures: Reports: None HEENT Surgical History: Reports: Oral Surgery, Tonsillectomy Cardiovascular Surgical History: Reports: None Respiratory Surgical History: Reports: None GI Surgical History: Reports: None Female Surgical History: Reports: None Endocrine Surgical History: Reports: None Neurological Surgical History: Reports: None Musculoskeletal Surgical History: Reports: None Oncologic Surgical History: Reports: None Dermatological Surgical History: Reports: None Social & Family History - Family History Family Medical History: Noncontributory HEENT: Reports: None OBGYN: Reports: - Tobacco Use Smoking Status *Q: Current Every Day Smoker Years of Tobacco use: 6 Packs/Tins Daily: 0.4 - Caffeine Use Caffeine Use: Reports: Coffee - Recreational Drug Use Recreational Drug Use: No ED ROS GENERAL - Review of Systems Review Of Systems: See Below ED EXAM, GENERAL - Physical Exam Exam: See Below Course - Vital Signs Last Recorded V/S: Last Vital Signs Temp 97.9 F 07/11/18 14:14 Pulse 83 07/11/18 14:14 Resp 18 07/11/18 14:14 BP 140/73 07/11/18 14:14 Pulse Ox 99 07/11/18 14:14 - Orders/Labs/Meds Orders: Active Orders 24 hr Category Date Time Status Non Stress Test [RC] PER UNIT ROUTINE Care 07/11/18 15:10 Active Departure - Departure Time of Disposition: 16:28 Disposition: Home, Self-Care 01 Condition: Good Clinical Impression: Encounter for medical screening examination - Discharge Information Referrals: PCP,Unknown [Primary Care Provider] - Forms: ED Department Discharge Additional Instructions: The following information is given to patients seen in the emergency department who are being discharged to home. This information is to outline your options for follow-up care. We provide all patients seen in our emergency department with a follow-up referral. The need for follow-up, as well as the timing and circumstances, are variable depending upon the specifics of your emergency department visit. If you don't have a primary care physician on staff, we will provide you with a referral. We always advise you to contact your personal physician following an emergency department visit to inform them of the circumstance of the visit and for follow-up with them and/or the need for any referrals to a consulting specialist. The emergency department will also refer you to a specialist when appropriate. This referral assures that you have the opportunity for follow-up care with a specialist. All of these measure are taken in an effort to provide you with optimal care, which includes your follow-up. Under all circumstances we always encourage you to contact your private physician who remains a resource for coordinating your care. When calling for follow-up care, please make the office aware that this follow-up is from your recent emergency room visit. If for any reason you are refused follow-up, please contact the [facility] emergency department at and asked to speak to the emergency department charge nurse. - My Orders Last 24 Hours: My Active Orders 07/11/18 15:10 Non Stress Test [RC] PER UNIT ROUTINE - Assessment/Plan Last 24 Hours: My Active Orders 07/11/18 15:10 Non Stress Test [RC] PER UNIT ROUTINE
== END 2018-07-11 16:44 | disposition home or self-care (01) ==
LOC: MW.ED 14:05
DX: O9A.212 Injury, poisoning and certain other consequences of external causes complicating pregnancy, second trimester (principal); Z04.3 Encounter for examination and observation following other accident; O99.342 Other mental disorders complicating pregnancy, second trimester; F32.9 Major depressive disorder, single episode, unspecified; O99.332 Smoking (tobacco) complicating pregnancy, second trimester; F17.210 Nicotine dependence, cigarettes, uncomplicated; Z88.1 Allergy status to other antibiotic agents; Z79.899 Other long term (current) drug therapy; Z3A.27 27 weeks gestation of pregnancy; W10.8XXA Fall (on) (from) other stairs and steps, initial encounter
CPT/HCPCS: 59025; 99283

== ENCOUNTER 2018-10-05 05:20 | Inpatient (IN) | payer BC ==
[2018-10-05] MEDS ORDERED: Misoprostol 25 MCG (1/4 of 100 MCG) Tab VAG PRN ×2 (05:25)
[2018-10-05] MEDS ORDERED: Sodium Chloride 0.9% 2.5 ML Syringe FLUSH PRN (05:25)
[2018-10-05] MEDS ORDERED: Tranexamic Acid 1,000 MG in Sodium Chloride 0.9% 100 ML IV PRN (05:25)
[2018-10-05] MEDS ORDERED: Misoprostol 200 MCG Tab PO PRN (05:25)
[2018-10-05] MEDS ORDERED: Lidocaine 1% 50 ML MDV INJECT PRN (05:25)
[2018-10-05] MEDS ORDERED: Water For Irrigation,Sterile 1,000 ML Container IRR PRN (05:25)
[2018-10-05] MEDS ORDERED: Terbutaline 1 MG/ML SDV SUBCUT PRN (05:25)
[2018-10-05] MEDS ORDERED: Sodium Chloride 0.9% 10 ML SDV IV PRN (05:25)
[2018-10-05] MEDS ORDERED: Methylergonovine 0.2 MG/1 ML Amp IM PRN (05:25)
[2018-10-05] MEDS ORDERED: Nalbuphine 10 MG/1 ML Vial IVPUSH PRN (05:25)
[2018-10-05] MEDS ORDERED: Butorphanol 1 MG/ML SDV IVPUSH PRN (05:25)
[2018-10-05] MEDS ORDERED: Carboprost Tromethamine 250 MCG/1 ML Amp IM PRN (05:25)
[2018-10-05] MEDS ORDERED: Sodium Chloride 0.9% 10 ML Syringe FLUSH PRN (05:25)
[2018-10-05] MEDS ORDERED: Oxytocin/0.9 % Sodium Chloride 30 UNIT/500 ML BAG IV SCH ×2 (05:30)
[2018-10-05] MEDS: Lactated Ringers 1,000 ML IV SCH ×2 (06:00→13:14)
[2018-10-05] MEDS ORDERED: Ondansetron 4 MG/2 ML SDV IVPUSH PRN (07:21)
--- NOTE | 2018-10-05 08:00 | PCM.LDHP ---
L&D History of Present Illness - General Date of Service: 10/05/18 Admit Problem/Dx: Patient Status Order with Admit Dx/Problem 10/05/18 05:25 Patient Status [ADT] Routine Admission Diagnosis/Problem Admission Diagnosis/Problem 10/05/18 07:54 23yo EDC 10/12/2018 39 0/7wks, IOL term, A+, RI, GBS neg Source of Information: Patient History Limitations: Reports: No Limitations - History of Present Illness Improves with: Reports: None Worsens with: Reports: None Associated Symptoms: Reports: N - Related Data Allergies/Adverse Reactions: Allergies Allergy/AdvReac Type Severity Reaction Status Date / Time amoxicillin Allergy Anaphylactic Verified 07/11/18 14:14 Shock coconut Allergy Itching Uncoded 05/18/18 14:14 Home Medications: Home Meds Ftv350/FA/Omega3/Dha/Fish Oil [ Gummies] 1 each PO DAILY 03/02/18 [ History] Ondansetron [Zofran ODT] 4 mg PO Q4H PRN #10 tab.dis 05/18/18 [Rx] Sertraline [Zoloft] 1 tab PO DAILY 05/18/18 [History] Past Medical History - Past Health History Medical/Surgical History: Denies Medical/Surgical History HEENT History: Reports: None Cardiovascular History: Reports: Heart Murmur Other Cardiovascular History: hx of pre eclampsia Respiratory History: Reports: Asthma Gastrointestinal History: Reports: None Genitourinary History: Reports: 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: Musculoskeletal History: Reports: None Neurological History: Reports: None Psychiatric History: Reports: Depression Endocrine/Metabolic History: Reports: None Hematologic History: Reports: Other (See Below) Other Hematologic History: hx of hemorrhage Immunologic History: Reports: None Oncologic (Cancer) History: Reports: None Dermatologic History: Reports: None - Infectious Disease History Infectious Disease History: Reports: MRSA - Past Surgical History Head Surgeries/Procedures: Reports: None HEENT Surgical History: Reports: Oral Surgery, Tonsillectomy Cardiovascular Surgical History: Reports: None Respiratory Surgical History: Reports: None GI Surgical History: Reports: None Female Surgical History: Reports: None Endocrine Surgical History: Reports: None Neurological Surgical History: Reports: None Musculoskeletal Surgical History: Reports: None Oncologic Surgical History: Reports: None Dermatological Surgical History: Reports: None Social & Family History - Family History Family Medical History: Noncontributory HEENT: Reports: None OBGYN: Reports: - Tobacco Use Smoking Status *Q: Current Every Day Smoker Years of Tobacco use: 6 Packs/Tins Daily: 0.5 Used Tobacco, but Quit: No Second Hand Smoke Exposure: Yes - Caffeine Use Caffeine Use: Reports: Coffee - Recreational Drug Use Recreational Drug Use: No H&P Review of Systems - Review of Systems: Review Of Systems: See Below General: Reports: No Symptoms HEENT: Reports: No Symptoms Pulmonary: Reports: No Symptoms Cardiovascular: Reports: No Symptoms Gastrointestinal: Reports: No Symptoms Genitourinary: Reports: No Symptoms Musculoskeletal: Reports: No Symptoms Skin: Reports: No Symptoms Psychiatric: Reports: No Symptoms Neurological: Reports: No Symptoms Hematologic/Lymphatic: Reports: No Symptoms Immunologic: Reports: No Symptoms L&D Exam - Exam Exam: See Below - Vital Signs Weight: 84.822 kg - OB Specific Contraction Intensity: Mild Movement: Active Heart Tones: Present Heart Tones per Min: 120 Heart Rate (FHR) Variability: Moderate (6-25 bmp) Presentation: Vertex - Snowden Score Snowden Score Cervix Position: Posterior Snowden Score Consistency: Soft Snowden Score Effacement: 51-70% Snowden Score Dilation: 3-4 cm Snowden Score Infant's Station: -2 Snowden Score Total: 7 - Exam General: Alert, Oriented HEENT: Hearing Intact Lungs: Clear to Auscultation, Normal Respiratory Effort Cardiovascular: Regular Rate, Regular Rhythm, Normal S1, Normal S2 GI/Abdominal Exam: Soft, Non-Tender Rectal Exam: Deferred Genitourinary: Cervical dilitation. No: Cervical fluid, Vaginal bleeding Back Exam: Normal Inspection, Full Range of Motion Extremities: Normal Inspection, Normal Range of Motion, Non-Tender, No Pedal Edema Skin: Warm, Dry, Intact Neurological: Cranial Nerves Intact, Strength Equal Bilateral, Normal Speech, Normal Tone Psychiatric: Alert, Normal Affect, Normal Mood - Patient Data Lab Results Last 24 hrs: Laboratory Results - last 24 hr 10/05/18 10/05/18 Range/Units 05:43 05:43 WBC 11.14 H (4.0-11.0) K/uL RBC 3.55 L (4.30-5.90) M/uL Hgb 10.7 L (12.0-16.0) g/dL Hct 31.3 L (36.0-46.0) % MCV 88.2 (80.0-98.0) fL MCH 30.1 (27.0-32.0) pg MCHC 34.2 (31.0-37.0) g/dL RDW Std Deviation 44.2 (28.0-62.0) fl RDW Coeff of Adria 15 (11.0-15.0) % Plt Count 207 (150-400) K/uL MPV 11.00 (7.40-12.00) fL Blood Type A NEGATIVE Antibody Screen NEGATIVE Result Diagrams: 10/05/18 05:43 - Problem List (1) Supervision of normal IUP (intrauterine ) in multigravida SNOMED Code(s): 734187078, 566189166, 886898804 ICD Code: Z34.80 - ENCOUNTER FOR SUPRVSN OF NORMAL , UNSP TRIMESTER Status: Acute Priority: High Current Visit: Yes Qualifiers: Trimester: third trimester Qualified Code(s): Z34.83 - Encounter for supervision of other normal , third trimester Problem List Initiated/Reviewed/Updated: Yes Orders Last 24hrs: Active Orders 24 hr Category Date Time Status Patient Status [ADT] Routine ADT 10/05/18 05:25 Active Bedrest Bathroom Privileges [RC] ASDIRECTED Care 10/05/18 05:25 Active Communication Order [RC] ASDIRECTED Care 10/05/18 05:25 Active Communication Order [RC] ASDIRECTED Care 10/05/18 05:25 Active Communication Order [RC] ASDIRECTED Care 10/05/18 05:25 Active Heart Tones [RC] CONTINUOUS Care 10/05/18 05:25 Active Non Stress Test [RC] PER UNIT ROUTINE Care 10/05/18 05:25 Active May Shower [RC] ASDIRECTED Care 10/05/18 05:25 Active Notify Provider [RC] PRN Care 10/05/18 05:25 Active Notify Provider [RC] PRN Care 10/05/18 05:25 Active Notify Provider [RC] PRN Care 10/05/18 05:25 Active Notify Provider [RC] STAT Care 10/05/18 05:25 Active Oxygen Therapy [RC] ASDIRECTED Care 10/05/18 05:25 Active Peripheral IV Care [RC] . DIRECTED Care 10/05/18 05:25 Active Up ad Shireen [RC] ASDIRECTED Care 10/05/18 05:25 Active Vaginal Exam [RC] PRN Care 10/05/18 05:25 Active Vital Signs [RC] PER UNIT ROUTINE Care 10/05/18 05:25 Active Regular Diet [DIET] Diet 10/05/18 Breakfast Active Butorphanol [Stadol] Med 10/05/18 05:25 Active 1 mg IVPUSH Q1H PRN Carboprost Tromethamine [Hemabate DS] Med 10/05/18 05:25 Active 250 mcg IM ASDIRECTED PRN Lactated Ringers [Ringers, Lactated] 1,000 ml Med 10/05/18 05:30 Active IV ASDIRECTED Lidocaine 1% [Xylocaine 1%] Med 10/05/18 05:25 Active 50 ml INJECT ONETIME PRN Methylergonovine [Methergine] Med 10/05/18 05:25 Active 0.2 mg IM ASDIRECTED PRN Nalbuphine [Nubain] Med 10/05/18 05:25 Active 10 mg IVPUSH Q1H PRN Ondansetron [Zofran] Med 10/05/18 07:21 Active 4 mg IVPUSH Q6H PRN Oxytocin/0.9 % Sodium Chloride [Oxytocin 30 Unit/500 ML Med 10/05/18 05:30 Active -NS] 30 unit in 500 ml IV TITRATE Oxytocin/0.9 % Sodium Chloride [Oxytocin 30 Unit/500 ML Med 10/05/18 05:30 Active -NS] 30 unit in 500 ml IV TITRATE Sodium Chloride 0.9% [Normal Saline] Med 10/05/18 05:25 Active 10 ml IV ASDIRECTED PRN Sodium Chloride 0.9% [Saline Flush] Med 10/05/18 05:25 Active 10 ml FLUSH ASDIRECTED PRN Sodium Chloride 0.9% [Saline Flush] Med 10/05/18 05:25 Active 2.5 ml FLUSH ASDIRECTED PRN Terbutaline [Brethine] Med 10/05/18 05:25 Active 0.25 mg SUBCUT ASDIRECTED PRN Tranexamic Acid [Cyklokapron] 1,000 mg Med 10/05/18 05:25 Active Sodium Chloride 0.9% [Normal Saline] 100 ml IV ONETIME Water For Irrigation,Sterile [Sterile Water for Med 10/05/18 05:25 Active Irrigation] 1,000 ml IRR ASDIRECTED PRN miSOPROStol [Cytotec] Med 10/05/18 05:25 Active 200 mcg PO ONETIME PRN miSOPROStol [Cytotec] Med 10/05/18 05:25 Active 25 mcg VAG ONETIME PRN miSOPROStol [Cytotec] Med 10/05/18 05:25 Active 25 mcg VAG Q4H PRN Scalp Electrode [WOMSER] Per Unit Routine Oth 10/05/18 05:25 Ordered Medication Administration Instruction [OM.PC] Q3H Oth 10/05/18 05:30 Ordered Peripheral IV Insertion Adult [OM.PC] Routine Oth 10/05/18 05:25 Ordered Resuscitation Status Routine Resus Stat 10/05/18 05:25 Ordered Medication Orders Butorphanol Tartrate (Stadol) 1 mg IVPUSH Q1H PRN PRN Reason: Pain Carboprost Tromethamine (Hemabate Ds) 250 mcg IM ASDIRECTED PRN PRN Reason: Post Hemorrhage Lactated Ringer's (Ringers, Lactated) 1,000 mls @ 150 mls/hr IV ASDIRECTED JAMIA Last Admin: 10/05/18 06:00 Dose: 150 mls/hr Oxytocin/Sodium Chloride (Oxytocin 30 Unit/500 Ml-Ns) 30 unit in 500 mls @ 2 mls/hr IV TITRATE JAMIA; Protocol Last Titration: 10/05/18 07:15 Dose: 6 munits/min, 6 mls/hr Titration: 10/05/18 06:34 Dose: 4 munits/min, 4 mls/hr Admin: 10/05/18 06:10 Dose: 2 munits/min, 2 mls/hr Oxytocin/Sodium Chloride (Oxytocin 30 Unit/500 Ml-Ns) 30 unit in 500 mls @ 999 mls/hr IV TITRATE JAMIA Tranexamic Acid 1,000 mg/ (Sodium Chloride) 110 mls @ 660 mls/hr IV ONETIME PRN PRN Reason: Bleeding Lidocaine HCl (Xylocaine 1%) 50 ml INJECT ONETIME PRN PRN Reason: Laceration repair Methylergonovine Maleate (Methergine) 0.2 mg IM ASDIRECTED PRN PRN Reason: Post Hemorrhage Misoprostol (Cytotec) 25 mcg VAG ONETIME PRN PRN Reason: Cervical Ripening Misoprostol (Cytotec) 25 mcg VAG Q4H PRN PRN Reason: Cervical Ripening Misoprostol (Cytotec) 200 mcg PO ONETIME PRN PRN Reason: Post Hemorrhage Nalbuphine HCl (Nubain) 10 mg IVPUSH Q1H PRN PRN Reason: Pain (severe 7-10) Ondansetron HCl (Zofran) 4 mg IVPUSH Q6H PRN PRN Reason: Nausea/Vomiting Sodium Chloride (Saline Flush) 10 ml FLUSH ASDIRECTED PRN PRN Reason: Keep Vein Open Sodium Chloride (Saline Flush) 2.5 ml FLUSH ASDIRECTED PRN PRN Reason: Keep Vein Open Sodium Chloride (Normal Saline) 10 ml IV ASDIRECTED PRN PRN Reason: IV Use Sterile Water (Sterile Water For Irrigation) 1,000 ml IRR ASDIRECTED PRN PRN Reason: delivery Terbutaline Sulfate (Brethine) 0.25 mg SUBCUT ASDIRECTED PRN PRN Reason: Tacysystole Assessment/Plan Comment:: IOL A: 23yo EDC 10/12/2018 39 0/7wks, IOL term, A+, RI, GBS neg P: Admit, pain mngt prn, anticipate . Dr Lima updated
[2018-10-05] MEDS ORDERED: Lidocaine HCl/EPINEPHrine 5 ML IJ ONE (13:20)
--- NOTE | 2018-10-05 14:26 | PCM.PREANE ---
Preanesthetic Assessment - Procedure Proposed Procedure: Continuous Labor Epidural - Anesthesia/Transfusion/Family Hx Anesthesia History: Prior Anesthesia Without Reaction Transfusion History: No Prior Transfusion(s) - Review of Systems General: No Symptoms Pulmonary: No Symptoms Cardiovascular: No Symptoms Gastrointestinal: No Symptoms Neurological: No Symptoms Other: Reports: None - Physical Assessment Height: 5 ft 3 in Weight: 84.822 kg ASA Class: 2 Mental Status: Alert & Oriented x3 Dentition: Reports: Normal Dentition Thyro-Mental Finger Breadths: 3 Mouth Opening Finger Breadths: 3 ROM/Head Extension: Full Lungs: Clear to Auscultation, Normal Respiratory Effort Cardiovascular: Regular Rate, Regular Rhythm - Lab Values: Laboratory Last Values WBC 11.14 K/uL (4.0-11.0) H 10/05/18 05:43 RBC 3.55 M/uL (4.30-5.90) L 10/05/18 05:43 Hgb 10.7 g/dL (12.0-16.0) L 10/05/18 05:43 Hct 31.3 % (36.0-46.0) L 10/05/18 05:43 MCV 88.2 fL (80.0-98.0) 10/05/18 05:43 MCH 30.1 pg (27.0-32.0) 10/05/18 05:43 MCHC 34.2 g/dL (31.0-37.0) 10/05/18 05:43 RDW Std Deviation 44.2 fl (28.0-62.0) 10/05/18 05:43 RDW Coeff of Adria 15 % (11.0-15.0) 10/05/18 05:43 Plt Count 207 K/uL (150-400) 10/05/18 05:43 MPV 11.00 fL (7.40-12.00) 10/05/18 05:43 Blood Type A NEGATIVE 10/05/18 05:43 Antibody Screen NEGATIVE 10/05/18 05:43 - Allergies Allergies/Adverse Reactions: Allergies Allergy/AdvReac Type Severity Reaction Status Date / Time amoxicillin Allergy Anaphylactic Verified 07/11/18 14:14 Shock coconut Allergy Itching Uncoded 05/18/18 14:14 - Acknowledgements Anesthesia Type Planned: Epidural Pt an Appropriate Candidate for the Planned Anesthesia: Yes Alternatives and Risks of Anesthesia Discussed w Pt/Guardian: Yes Pt/Guardian Understands and Agrees with Anesthesia Plan: Yes PreAnesthesia Questionnaire - Past Health History Medical/Surgical History: Denies Medical/Surgical History HEENT History: Reports: None Cardiovascular History: Reports: Heart Murmur Other Cardiovascular History: hx of pre eclampsia Respiratory History: Reports: Asthma Gastrointestinal History: Reports: None Genitourinary History: Reports: None 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: 3 LMP (Approximate): Musculoskeletal History: Reports: None Neurological History: Reports: None Psychiatric History: Reports: Depression Endocrine/Metabolic History: Reports: None Hematologic History: Reports: Other (See Below) Other Hematologic History: hx of hemorrhage Immunologic History: Reports: None Oncologic (Cancer) History: Reports: None Dermatologic History: Reports: None - Infectious Disease History Infectious Disease History: Reports: MRSA - Past Surgical History Head Surgeries/Procedures: Reports: None HEENT Surgical History: Reports: Oral Surgery, Tonsillectomy Cardiovascular Surgical History: Reports: None Respiratory Surgical History: Reports: None GI Surgical History: Reports: None Female Surgical History: Reports: None Endocrine Surgical History: Reports: None Neurological Surgical History: Reports: None Musculoskeletal Surgical History: Reports: None Oncologic Surgical History: Reports: None Dermatological Surgical History: Reports: None - SUBSTANCE USE Smoking Status *Q: Current Every Day Smoker Tobacco Use Within Last Twelve Months: Cigarettes Second Hand Smoke Exposure: Yes Recreational Drug Use History: No - HOME MEDS Home Medications: Home Meds Ssb754/FA/Omega3/Dha/Fish Oil [ Gummies] 1 each PO DAILY 03/02/18 [ History] Ondansetron [Zofran ODT] 4 mg PO Q4H PRN #10 tab.dis 05/18/18 [Rx] Sertraline [Zoloft] 1 tab PO DAILY 05/18/18 [History] - CURRENT (IN HOUSE) MEDS Current Meds: Current Medications Butorphanol Tartrate (Stadol) 1 mg IVPUSH Q1H PRN PRN Reason: Pain Carboprost Tromethamine (Hemabate Ds) 250 mcg IM ASDIRECTED PRN PRN Reason: Post Hemorrhage Lactated Ringer's (Ringers, Lactated) 1,000 mls @ 150 mls/hr IV ASDIRECTED JAMIA Last Admin: 10/05/18 13:14 Dose: 999 mls/hr Oxytocin/Sodium Chloride (Oxytocin 30 Unit/500 Ml-Ns) 30 unit in 500 mls @ 2 mls/hr IV TITRATE JAMIA; Protocol Last Titration: 10/05/18 10:43 Dose: 0 munits/min, 0 mls/hr Oxytocin/Sodium Chloride (Oxytocin 30 Unit/500 Ml-Ns) 30 unit in 500 mls @ 999 mls/hr IV TITRATE JAMIA Tranexamic Acid 1,000 mg/ (Sodium Chloride) 110 mls @ 660 mls/hr IV ONETIME PRN PRN Reason: Bleeding Lidocaine HCl (Xylocaine 1%) 50 ml INJECT ONETIME PRN PRN Reason: Laceration repair Methylergonovine Maleate (Methergine) 0.2 mg IM ASDIRECTED PRN PRN Reason: Post Hemorrhage Misoprostol (Cytotec) 25 mcg VAG ONETIME PRN PRN Reason: Cervical Ripening Misoprostol (Cytotec) 25 mcg VAG Q4H PRN PRN Reason: Cervical Ripening Misoprostol (Cytotec) 200 mcg PO ONETIME PRN PRN Reason: Post Hemorrhage Nalbuphine HCl (Nubain) 10 mg IVPUSH Q1H PRN PRN Reason: Pain (severe 7-10) Ondansetron HCl (Zofran) 4 mg IVPUSH Q6H PRN PRN Reason: Nausea/Vomiting Sodium Chloride (Saline Flush) 10 ml FLUSH ASDIRECTED PRN PRN Reason: Keep Vein Open Sodium Chloride (Saline Flush) 2.5 ml FLUSH ASDIRECTED PRN PRN Reason: Keep Vein Open Sodium Chloride (Normal Saline) 10 ml IV ASDIRECTED PRN PRN Reason: IV Use Sterile Water (Sterile Water For Irrigation) 1,000 ml IRR ASDIRECTED PRN PRN Reason: delivery Terbutaline Sulfate (Brethine) 0.25 mg SUBCUT ASDIRECTED PRN PRN Reason: Tacysystole Discontinued Medications Fentanyl/Bupivacaine HCl (Raraafnx-Aexce-Xl 2 Mcg/Ml-0.125%) Confirm Administered Dose 100 mls @ as directed .ROUTE .STK-MED ONE Stop: 10/05/18 13:21 Lidocaine/Epinephrine (Lidocaine 1.5%-Epi 1:200,000) Confirm Administered Dose 5 ml IJ .STK-MED ONE Stop: 10/05/18 13:21
[2018-10-05] MEDS ORDERED: Witch Hazel Medicated Pads 40/Jar TOP PRN (14:36)
[2018-10-05] MEDS ORDERED: Lanolin 100% Cream 7 GM Tube TOP PRN (14:36)
[2018-10-05] MEDS ORDERED: Ibuprofen 400 MG Tab PO PRN (14:36)
[2018-10-05] MEDS ORDERED: Docusate Sodium 100 MG Cap PO PRN (14:36)
[2018-10-05] MEDS ORDERED: Benzocaine/Menthol 20%-0.5% Spray 78 GM Cannister TOP PRN (14:36)
[2018-10-05] MEDS ORDERED: Acetaminophen 500 MG Tab PO PRN ×2 (14:36)
[2018-10-05] MEDS ORDERED: Bisacodyl 10 MG Supp RECTAL PRN (14:36)
[2018-10-05] MEDS ORDERED: oxyCODONE 5 MG Tab PO PRN (14:36)
--- NOTE | 2018-10-05 14:47 | PCM.DEL ---
L & D Note - General Info Date of Service: 10/05/18 Mother's Due Date: 10/12/18 - Delivery Note Labor: Augmented by ARM, Induced by Oxytocin Delivery Outcome: Livebirth Delivery Method: Spontaneous Vaginal Delivery-Single Delivery Mode: Spontaneous Presentation: Vertex Anesthesia Type: None Episiotomy Type: None Laceration: None Placenta: Intact, Spontaneous Cord: 3 Vessels Estimated Blood Loss: 100 Score 1 min: 8 Score 5 min: 9 Second Stage Interventions: Reports: Pushing, Pulls Own Legs Back Delivery Comments (Free Text/Narrative):: viable female, head delivered, nuchal x2, tight but head continued to delivery, shoulders and body followed easily, cords reduced. Infant with spont cry placed on mothers abd. Delayed cord clamping, pitocin to IVF. Cord clamped x2 and cut by Cousin. Cord blood collected. Placenta delivered grossly intact. Inspection noted intact perineum. EBL 100cc, APGARS 8/9, Wt: 6lb 4oz. Mother and baby left in stable condition for recovery. Induction Criteria - Snowden Score Snowden Score Dilation: 3-4 cm Snowden Score Effacement: 60-70% Snowden Score Infant's Station: -2 Snowden Score Consistency: Medium Snowden Score Cervix Position: Posterior Snowden Score Total: 6 Snowden Score Presenting Part: Reports: Cephalic - Induction Gestational Age >/= 39 wks: Yes Estimated Pelvis: Reports: Adequate Reassuring Monitoring Strip: Yes Absence of Tachy Systole: Yes - General Info Date of Service: 10/05/18 Admission Dx/Problem (Free Text): Patient Status Order with Admit Dx/Problem 10/05/18 05:25 Patient Status [ADT] Routine Admission Diagnosis/Problem Admission Diagnosis/Problem 10/05/18 07:54 23yo EDC 10/12/2018 39 0/7wks, IOL term, A+, RI, GBS neg Functional Status: Reports: Pain Controlled - Review of Systems General: Reports: No Symptoms HEENT: Reports: No Symptoms Pulmonary: Reports: No Symptoms Cardiovascular: Reports: No Symptoms Gastrointestinal: Reports: No Symptoms Genitourinary: Reports: No Symptoms Musculoskeletal: Reports: No Symptoms Skin: Reports: No Symptoms Neurological: Reports: No Symptoms Psychiatric: Reports: No Symptoms - Patient Data Weight - Most Recent: 84.822 kg Lab Results Last 24 Hours: Laboratory Results - last 24 hr 10/05/18 10/05/18 Range/Units 05:43 05:43 WBC 11.14 H (4.0-11.0) K/uL RBC 3.55 L (4.30-5.90) M/uL Hgb 10.7 L (12.0-16.0) g/dL Hct 31.3 L (36.0-46.0) % MCV 88.2 (80.0-98.0) fL MCH 30.1 (27.0-32.0) pg MCHC 34.2 (31.0-37.0) g/dL RDW Std Deviation 44.2 (28.0-62.0) fl RDW Coeff of Adria 15 (11.0-15.0) % Plt Count 207 (150-400) K/uL MPV 11.00 (7.40-12.00) fL Blood Type A NEGATIVE Antibody Screen NEGATIVE Med Orders - Current: Current Medications Acetaminophen (Tylenol Extra Strength) 500 mg PO Q4H PRN PRN Reason: Pain Acetaminophen (Tylenol Extra Strength) 1,000 mg PO Q4H PRN PRN Reason: Pain Benzocaine/Menthol (Dermoplast Pain Relief 20%-0.5% [place]) 78 gm TOP ASDIRECTED PRN PRN Reason: Perineal Comfort Measure Bisacodyl (Dulcolax) 10 mg RECTAL ONETIME PRN PRN Reason: Constipation Docusate Sodium (Colace) 100 mg PO BID PRN PRN Reason: Constipation Emollient Ointment (Lansinoh Hpa) 0 gm TOP ASDIRECTED PRN PRN Reason: Sore Nipples Ibuprofen (Motrin) 400 mg PO Q4H PRN PRN Reason: Pain Ibuprofen (Motrin) 800 mg PO Q6H PRN PRN Reason: Pain Oxycodone HCl (Oxycodone) 5 mg PO Q2H PRN PRN Reason: Pain Witch Jany (Tucks) 1 pad TOP ASDIRECTED PRN PRN Reason: comfort care Discontinued Medications Butorphanol Tartrate (Stadol) 1 mg IVPUSH Q1H PRN PRN Reason: Pain Carboprost Tromethamine (Hemabate Ds) 250 mcg IM ASDIRECTED PRN PRN Reason: Post Hemorrhage Lactated Ringer's (Ringers, Lactated) 1,000 mls @ 150 mls/hr IV ASDIRECTED JAMIA Last Admin: 10/05/18 13:14 Dose: 999 mls/hr Oxytocin/Sodium Chloride (Oxytocin 30 Unit/500 Ml-Ns) 30 unit in 500 mls @ 2 mls/hr IV TITRATE JAMIA; Protocol Last Titration: 10/05/18 10:43 Dose: 0 munits/min, 0 mls/hr Oxytocin/Sodium Chloride (Oxytocin 30 Unit/500 Ml-Ns) 30 unit in 500 mls @ 999 mls/hr IV TITRATE JAMIA Tranexamic Acid 1,000 mg/ (Sodium Chloride) 110 mls @ 660 mls/hr IV ONETIME PRN PRN Reason: Bleeding Fentanyl/Bupivacaine HCl ([id number]-Ljzjk-Fs 2 Mcg/Ml-0.125%) Confirm Administered Dose 100 mls @ as directed .ROUTE .STK-MED ONE Stop: 10/05/18 13:21 Lidocaine HCl (Xylocaine 1%) 50 ml INJECT ONETIME PRN PRN Reason: Laceration repair Lidocaine/Epinephrine (Lidocaine 1.5%-Epi 1:200,000) Confirm Administered Dose 5 ml IJ .STK-MED ONE Stop: 10/05/18 13:21 Methylergonovine Maleate (Methergine) 0.2 mg IM ASDIRECTED PRN PRN Reason: Post Hemorrhage Misoprostol (Cytotec) 25 mcg VAG ONETIME PRN PRN Reason: Cervical Ripening Misoprostol (Cytotec) 25 mcg VAG Q4H PRN PRN Reason: Cervical Ripening Misoprostol (Cytotec) 200 mcg PO ONETIME PRN PRN Reason: Post Hemorrhage Nalbuphine HCl (Nubain) 10 mg IVPUSH Q1H PRN PRN Reason: Pain (severe 7-10) Ondansetron HCl (Zofran) 4 mg IVPUSH Q6H PRN PRN Reason: Nausea/Vomiting Sodium Chloride (Saline Flush) 10 ml FLUSH ASDIRECTED PRN PRN Reason: Keep Vein Open Sodium Chloride (Saline Flush) 2.5 ml FLUSH ASDIRECTED PRN PRN Reason: Keep Vein Open Sodium Chloride (Normal Saline) 10 ml IV ASDIRECTED PRN PRN Reason: IV Use Sterile Water (Sterile Water For Irrigation) 1,000 ml IRR ASDIRECTED PRN PRN Reason: delivery Terbutaline Sulfate (Brethine) 0.25 mg SUBCUT ASDIRECTED PRN PRN Reason: Tacysystole - Exam General: Alert, Oriented, Cooperative, No Acute Distress Lungs: Normal Respiratory Effort GI/Abdominal Exam: Soft, Non-Tender (Female) Exam: Normal External Exam, Normal Bimanual Exam, Vaginal Bleeding Back Exam: Normal Inspection Extremities: Normal Inspection, Normal Range of Motion, Non-Tender, No Pedal Edema Skin: Warm, Dry, Intact Neurological: No New Focal Deficit, Normal Speech, Normal Tone, Strength Equal Bilateral Psy/Mental Status: Alert, Normal Affect, Normal Mood - Problem List & Annotations (1) Supervision of normal IUP (intrauterine ) in multigravida SNOMED Code(s): 640258375, 188186677, 022985709 Code(s): Z34.80 - ENCOUNTER FOR SUPRVSN OF NORMAL , UNSP TRIMESTER Status: Acute Priority: High Current Visit: Yes Qualifiers: Trimester: third trimester Qualified Code(s): Z34.83 - Encounter for supervision of other normal , third trimester (2) (normal spontaneous vaginal delivery) SNOMED Code(s): 60733287 Code(s): O80 - ENCOUNTER FOR FULL-TERM UNCOMPLICATED DELIVERY Status: Acute Priority: High Current Visit: Yes - Problem List Review Problem List Initiated/Reviewed/Updated: Yes - My Orders Last 24 Hours: My Active Orders 10/05/18 05:25 Heart Tones [RC] CONTINUOUS Non Stress Test [RC] PER UNIT ROUTINE Oxygen Therapy [RC] ASDIRECTED Peripheral IV Care [RC] . DIRECTED Vaginal Exam [RC] PRN Vital Signs [RC] PER UNIT ROUTINE 10/05/18 14:36 Acetaminophen [Tylenol Extra Strength] 1,000 mg PO Q4H PRN Acetaminophen [Tylenol Extra Strength] 500 mg PO Q4H PRN Benzocaine/Menthol [Dermoplast Pain Relief 20%-0.5% [place]] 78 gm TOP ASDIRECTED PRN Bisacodyl [Dulcolax] 10 mg RECTAL ONETIME PRN Docusate Sodium [Colace] 100 mg PO BID PRN Ibuprofen [Motrin] 400 mg PO Q4H PRN Ibuprofen [Motrin] 800 mg PO Q6H PRN Lanolin [Lansinoh HPA] See Dose Instructions TOP ASDIRECTED PRN Witch Jany [Tucks] 1 pad TOP ASDIRECTED PRN oxyCODONE 5 mg PO Q2H PRN Resuscitation Status Routine 10/05/18 14:37 May Shower [RC] ASDIRECTED Up ad Shireen [RC] ASDIRECTED Vital Signs [RC] PER UNIT ROUTINE Assess Lochia [WOMSER] Per Unit Routine Assess Uterine Involution [WOMSER] Per Unit Routine Peripheral IV Discontinue [OM.PC] Routine 10/05/18 14:38 Patient Status [ADT] Routine 10/05/18 Dinner Regular Diet [DIET] - Plan Plan:: IOL A: 23yo EDC 10/12/2018 39 0/7wks, IOL term, A+, RI, GBS neg P: Admit, pain mngt prn, anticipate . Dr Lima updated Delivery A: viable female, APGARS 8/9, Wt: 6lb 4oz, EBL 100cc, intact, stable P: Routine pp poc
[2018-10-05] MEDS ORDERED: Nicotine 21 MG/24 Hr Patch TRDERM SCH (19:30)
[2018-10-05] MEDS: Ibuprofen 800 MG Tab PO PRN (22:03)
[2018-10-06 07:51] VITALS: BP 142/77
--- NOTE | 2018-10-06 08:33 | PCM.DCSUM1 ---
Discharge Summary - Hospital Course Free Text/Narrative:: Discharge home with , follow up in 6 weeks for Diagnosis: Stroke: No - Discharge Data Discharge Date: 10/06/18 Discharge Disposition: Home, Self-Care 01 Condition: Good - Discharge Diagnosis/Problem(s) (1) Supervision of normal IUP (intrauterine ) in multigravida SNOMED Code(s): 052407457, 813669137, 555308813 ICD Code: Z34.80 - ENCOUNTER FOR SUPRVSN OF NORMAL , UNSP TRIMESTER Status: Acute Priority: High Current Visit: Yes Qualifiers: Trimester: third trimester Qualified Code(s): Z34.83 - Encounter for supervision of other normal , third trimester (2) (normal spontaneous vaginal delivery) SNOMED Code(s): 23286789 ICD Code: O80 - ENCOUNTER FOR FULL-TERM UNCOMPLICATED DELIVERY Status: Acute Priority: High Current Visit: Yes - Patient Instructions Diet: Usual Diet as Tolerated Activity: As Tolerated, No Strenuous Activities, Rest and Relax Today Driving: May Drive Today Showering/Bathing: May Shower Notify Provider of: Fever, Increased Pain, Swelling and Redness, Nausea and/or Vomiting Other/Special Instructions: Discharge home with , follow up in 6 weeks for - Discharge Plan *PRESCRIPTION DRUG MONITORING PROGRAM REVIEWED*: Not Applicable *COPY OF PRESCRIPTION DRUG MONITORING REPORT IN PATIENT AGUILA: Not Applicable Prescriptions/Med Rec: Ibuprofen [Motrin] 800 mg PO Q6H PRN #90 tablet PRN Reason: Pain Home Medications: Home Meds Cvq033/FA/Omega3/Dha/Fish Oil [ Gummies] 1 each PO DAILY 03/02/18 [ History] Ondansetron [Zofran ODT] 4 mg PO Q4H PRN #10 tab.dis 05/18/18 [Rx] Sertraline [Zoloft] 1 tab PO DAILY 05/18/18 [History] Ibuprofen [Motrin] 800 mg PO Q6H PRN #90 tablet 10/06/18 [Rx] Oxygen Therapy Mode: Room Air Referrals: [facility] [Outside] Kaykay Ramírez CNM [Mid-] - 11/16/18 9:30 am - Discharge Summary/Plan Comment DC Time >30 min.: Yes - General Info Date of Service: 10/06/18 Admission Dx/Problem (Free Text: Patient Status Order with Admit Dx/Problem 10/05/18 05:25 Patient Status [ADT] Routine Admission Diagnosis/Problem Admission Diagnosis/Problem 10/05/18 07:54 23yo EDC 10/12/2018 39 0/7wks, IOL term, A+, RI, GBS neg Functional Status: Reports: Pain Controlled, Tolerating Diet, Ambulating, Urinating - Review of Systems General: Reports: No Symptoms HEENT: Reports: No Symptoms Pulmonary: Reports: No Symptoms Cardiovascular: Reports: No Symptoms Gastrointestinal: Reports: No Symptoms Genitourinary: Reports: No Symptoms Musculoskeletal: Reports: No Symptoms Skin: Reports: No Symptoms Neurological: Reports: No Symptoms Psychiatric: Reports: No Symptoms - Patient Data Vitals - Most Recent: Last Vital Signs Temp 36.3 C 10/06/18 07:00 Pulse 68 10/06/18 07:00 Resp 18 10/06/18 07:00 BP 142/77 H 10/06/18 07:00 Pulse Ox 99 10/06/18 07:00 Weight - Most Recent: 84.822 kg Med Orders - Current: Current Medications Acetaminophen (Tylenol Extra Strength) 500 mg PO Q4H PRN PRN Reason: Pain Acetaminophen (Tylenol Extra Strength) 1,000 mg PO Q4H PRN PRN Reason: Pain Last Admin: 10/06/18 01:37 Dose: 1,000 mg Benzocaine/Menthol (Dermoplast Pain Relief 20%-0.5% [place]) 78 gm TOP ASDIRECTED PRN PRN Reason: Perineal Comfort Measure Bisacodyl (Dulcolax) 10 mg RECTAL ONETIME PRN PRN Reason: Constipation Docusate Sodium (Colace) 100 mg PO BID PRN PRN Reason: Constipation Emollient Ointment (Lansinoh Hpa) 0 gm TOP ASDIRECTED PRN PRN Reason: Sore Nipples Ibuprofen (Motrin) 400 mg PO Q4H PRN PRN Reason: Pain Ibuprofen (Motrin) 800 mg PO Q6H PRN PRN Reason: Pain Last Admin: 10/05/18 22:03 Dose: 800 mg Nicotine (Habitrol) 21 mg TRDERM DAILY JAMIA Last Admin: 10/05/18 20:13 Dose: 21 mg Oxycodone HCl (Oxycodone) 5 mg PO Q2H PRN PRN Reason: Pain Witch Jany (Tucks) 1 pad TOP ASDIRECTED PRN PRN Reason: comfort care Discontinued Medications Butorphanol Tartrate (Stadol) 1 mg IVPUSH Q1H PRN PRN Reason: Pain Carboprost Tromethamine (Hemabate Ds) 250 mcg IM ASDIRECTED PRN PRN Reason: Post Hemorrhage Lactated Ringer's (Ringers, Lactated) 1,000 mls @ 150 mls/hr IV ASDIRECTED JAMIA Last Admin: 10/05/18 13:14 Dose: 999 mls/hr Oxytocin/Sodium Chloride (Oxytocin 30 Unit/500 Ml-Ns) 30 unit in 500 mls @ 2 mls/hr IV TITRATE JAMIA; Protocol Last Titration: 10/05/18 10:43 Dose: 0 munits/min, 0 mls/hr Oxytocin/Sodium Chloride (Oxytocin 30 Unit/500 Ml-Ns) 30 unit in 500 mls @ 999 mls/hr IV TITRATE JAMIA Tranexamic Acid 1,000 mg/ (Sodium Chloride) 110 mls @ 660 mls/hr IV ONETIME PRN PRN Reason: Bleeding Fentanyl/Bupivacaine HCl (Utnrxxuv-Brtnd-Ji 2 Mcg/Ml-0.125%) Confirm Administered Dose 100 mls @ as directed .ROUTE .STK-MED ONE Stop: 10/05/18 13:21 Lidocaine HCl (Xylocaine 1%) 50 ml INJECT ONETIME PRN PRN Reason: Laceration repair Lidocaine/Epinephrine (Lidocaine 1.5%-Epi 1:200,000) Confirm Administered Dose 5 ml IJ .STK-MED ONE Stop: 10/05/18 13:21 Methylergonovine Maleate (Methergine) 0.2 mg IM ASDIRECTED PRN PRN Reason: Post Hemorrhage Misoprostol (Cytotec) 25 mcg VAG ONETIME PRN PRN Reason: Cervical Ripening Misoprostol (Cytotec) 25 mcg VAG Q4H PRN PRN Reason: Cervical Ripening Misoprostol (Cytotec) 200 mcg PO ONETIME PRN PRN Reason: Post Hemorrhage Nalbuphine HCl (Nubain) 10 mg IVPUSH Q1H PRN PRN Reason: Pain (severe 7-10) Ondansetron HCl (Zofran) 4 mg IVPUSH Q6H PRN PRN Reason: Nausea/Vomiting Sodium Chloride (Saline Flush) 10 ml FLUSH ASDIRECTED PRN PRN Reason: Keep Vein Open Sodium Chloride (Saline Flush) 2.5 ml FLUSH ASDIRECTED PRN PRN Reason: Keep Vein Open Sodium Chloride (Normal Saline) 10 ml IV ASDIRECTED PRN PRN Reason: IV Use Sterile Water (Sterile Water For Irrigation) 1,000 ml IRR ASDIRECTED PRN PRN Reason: delivery Terbutaline Sulfate (Brethine) 0.25 mg SUBCUT ASDIRECTED PRN PRN Reason: Tacysystole - Exam General: Reports: Alert, Oriented, Cooperative, No Acute Distress Lungs: Reports: Normal Respiratory Effort (Female) Exam: Deferred, Vaginal Bleeding Rectal (Female) Exam: Deferred Back Exam: Reports: Normal Inspection, Full Range of Motion Extremities: Normal Inspection, Normal Range of Motion, Non-Tender, No Pedal Edema Skin: Reports: Warm, Dry, Intact Neurological: Reports: No New Focal Deficit, Normal Speech, Normal Tone, Strength Equal Bilateral Psy/Mental Status: Reports: Alert, Normal Affect, Normal Mood
--- NOTE | 2018-10-06 10:32 | PCM48HPAN ---
Post Anesthesia Note - EVALUATION WITHIN 48HRS OF ANESTHETIC Vital Signs in Normal Range: Yes Patient Participated in Evaluation: Yes Respiratory Function Stable: Yes Airway Patent: Yes Cardiovascular Function Stable: Yes Hydration Status Stable: Yes Pain Control Satisfactory: Yes Nausea and Vomiting Control Satisfactory: Yes Mental Status Recovered: Yes Resp Rate: 18
[2018-10-06] MEDS: Ibuprofen 800 MG Tab PO PRN (13:01)
== END 2018-10-06 16:47 | disposition home or self-care (01) | DRG 560 ==
LOC: MW.OBCHECK 05:20 → MW.OB 05:23 → OBSVTOIN 14:21 → MW.OB 14:21
PROVIDERS: ADMIT Obstetrics & Gynecology; ATTEND Advanced Practice Midwife
PROC: 10E0XZZ Delivery of Products of Conception, External Approach (ICD-10-PCS; principal; 2018-10-05)
PROC: 10907ZC Drainage of Amniotic Fluid, Therapeutic from Products of Conception, Via Natural or Artificial Opening (ICD-10-PCS; 2018-10-05)
PROC: 3E033VJ Introduction of Other Hormone into Peripheral Vein, Percutaneous Approach (ICD-10-PCS; 2018-10-05)
DX: O69.1XX0 Labor and delivery complicated by cord around neck, with compression, not applicable or unspecified (principal); O99.344 Other mental disorders complicating childbirth; O99.52 Diseases of the respiratory system complicating childbirth; F32.9 Major depressive disorder, single episode, unspecified; J45.909 Unspecified asthma, uncomplicated; O99.334 Smoking (tobacco) complicating childbirth; F17.210 Nicotine dependence, cigarettes, uncomplicated; Z3A.39 39 weeks gestation of pregnancy; Z37.0 Single live birth
CPT/HCPCS: 36415; 59025; 59409; 85027; 86850; 86900; 86901; A9270-GY; J2590; J7120

== ENCOUNTER 2019-02-15 09:09 | Emergency (ER) | payer BC ==
--- NOTE | 2019-02-15 09:23 | EDM.PDOC ---
ED HPI GENERAL MEDICAL PROBLEM - General Chief Complaint: Lower Extremity Injury/Pain Stated Complaint: PT FELL, LEFT ANKLE PAIN Time Seen by Provider: 02/15/19 09:19 - History of Present Illness INITIAL COMMENTS - FREE TEXT/NARRATIVE: HISTORY AND PHYSICAL: History of present illness: Patient 24-year-old white female presents with acute left ankle injury that occurred when she rolled her ankle. She denies other trauma or concern she has pain and swelling since. Review of systems: As per history of present illness and below otherwise all systems reviewed and negative. Past medical history: As per history of present illness and as reviewed below otherwise noncontributory. Surgical history: As per history of present illness and as reviewed below otherwise noncontributory. Social history: No reported history of drug or alcohol abuse. Family history: As per history of present illness and as reviewed below otherwise noncontributory. Physical exam: HEENT: Atraumatic, normocephalic, pupils reactive, negative for conjunctival pallor or scleral icterus, mucous membranes moist, throat clear, neck supple, nontender, trachea midline. Lungs: Clear to auscultation, breath sounds equal bilaterally, chest nontender. Heart: S1S2, regular, negative for clicks, rubs, or JVD. Abdomen: Soft, nondistended, nontender. Negative for masses or hepatosplenomegaly. Negative for costovertebral tenderness. Pelvis: Stable nontender. Genitourinary: Deferred. Rectal: Deferred. Extremities: Left ankle has swelling and tenderness in region of lateral malleolus there is no proximal fibular tenderness no gross deformity CMS neurovascular exam is unremarkable Neuro: Awake, alert, oriented. Cranial nerves II through XII unremarkable. Cerebellum unremarkable. Motor and sensory unremarkable throughout. Exam nonfocal. Diagnostics: X-ray left ankle Therapeutics: Devonte wrap crutches Impression: #1 left ankle injury Definitive disposition and diagnosis as appropriate pending reevaluation and review of above. - Related Data Allergies Allergy/AdvReac Type Severity Reaction Status Date / Time amoxicillin Allergy Anaphylactic Verified 07/11/18 14:14 Shock coconut Allergy Itching Uncoded 05/18/18 14:14 Home Meds: Home Meds Nin807/FA/Omega3/Dha/Fish Oil [ Gummies] 1 each PO DAILY 03/02/18 [ History] Ondansetron [Zofran ODT] 4 mg PO Q4H PRN #10 tab.dis 05/18/18 [Rx] Sertraline [Zoloft] 1 tab PO DAILY 05/18/18 [History] Ibuprofen [Motrin] 800 mg PO Q6H PRN #90 tablet 10/06/18 [Rx] Past Medical History - Past Health History Medical/Surgical History: Denies Medical/Surgical History HEENT History: Reports: None Cardiovascular History: Reports: Heart Murmur Other Cardiovascular History: hx of pre eclampsia Respiratory History: Reports: Asthma Gastrointestinal History: Reports: None Genitourinary History: Reports: None EXHAUST TENDER History: Reports: Musculoskeletal History: Reports: None Neurological History: Reports: None Psychiatric History: Reports: Depression Endocrine/Metabolic History: Reports: None Hematologic History: Reports: Other (See Below) Other Hematologic History: hx of hemorrhage Immunologic History: Reports: None Oncologic (Cancer) History: Reports: None Dermatologic History: Reports: None - Infectious Disease History Infectious Disease History: Reports: MRSA - Past Surgical History Head Surgeries/Procedures: Reports: None HEENT Surgical History: Reports: Oral Surgery, Tonsillectomy Cardiovascular Surgical History: Reports: None Respiratory Surgical History: Reports: None GI Surgical History: Reports: None Female Surgical History: Reports: None Endocrine Surgical History: Reports: None Neurological Surgical History: Reports: None Musculoskeletal Surgical History: Reports: None Oncologic Surgical History: Reports: None Dermatological Surgical History: Reports: None Social & Family History - Family History Family Medical History: Noncontributory HEENT: Reports: None OBGYN: Reports: - Caffeine Use Caffeine Use: Reports: Coffee Review of Systems - Review of Systems Review Of Systems: ROS reveals no pertinent complaints other than HPI. ED EXAM, GENERAL - Physical Exam Exam: See Below (See dictation) Departure - Departure Time of Disposition: 09:22 Disposition: Home, Self-Care 01 Condition: Good Clinical Impression: Ankle injury - Discharge Information Referrals: PCP,None [Primary Care Provider] - Additional Instructions: The following information is given to patients seen in the emergency department who are being discharged to home. This information is to outline your options for follow-up care. We provide all patients seen in our emergency department with a follow-up referral. The need for follow-up, as well as the timing and circumstances, are variable depending upon the specifics of your emergency department visit. If you don't have a primary care physician on staff, we will provide you with a referral. We always advise you to contact your personal physician following an emergency department visit to inform them of the circumstance of the visit and for follow-up with them and/or the need for any referrals to a consulting specialist. The emergency department will also refer you to a specialist when appropriate. This referral assures that you have the opportunity for followup care with a specialist. All of these measure are taken in an effort to provide you with optimal care, which includes your followup. Under all circumstances we always encourage you to contact your private physician who remains a resource for coordinating your care. When calling for followup care, please make the office aware that this follow-up is from your recent emergency room visit. If for any reason you are refused follow-up, please contact the [facility] emergency department at and asked to speak to the emergency department charge nurse. [facility] - [facility] Professional [address], [address] [place] [address] Devonte wrap crutches as directed Motrin/Tylenol as directed follow-up private medical doctor and/or orthopedic surgery above return as needed as discussed
--- NOTE | 2019-02-15 10:14 | CR ---
INDICATION: Pain. TECHNIQUE: Three views left ankle. FINDINGS: Mild soft tissue prominence left ankle anteriorly. No acute fracture or dislocation in left ankle. Left ankle otherwise negative. Dictated by Dawood Acharya MD @ Feb 15 2019 10:11AM Signed by Dr. Dawood Acharya @ Feb 15 2019 10:12AM
[2019-02-15 10:36] VITALS: BP 123/80
== END 2019-02-15 10:30 | disposition home or self-care (01) ==
LOC: MW.ED 09:09
DX: S99.912A Unspecified injury of left ankle, initial encounter (principal); F32.9 Major depressive disorder, single episode, unspecified; Z88.1 Allergy status to other antibiotic agents; Z91.018 Allergy to other foods; Z79.899 Other long term (current) drug therapy; Z86.14 Personal history of Methicillin resistant Staphylococcus aureus infection; W18.39XA Other fall on same level, initial encounter
CPT/HCPCS: 73610-26-LT; 73610-LT; 99283-25

== ENCOUNTER 2020-07-13 09:13 | Emergency (ER) | payer BC, OTHER ==
[2020-07-13] MEDS ORDERED: Prochlorperazine 10 MG/2 ML SDV IVPUSH ONE (10:06)
[2020-07-13] MEDS ORDERED: diphenhydrAMINE 50 MG/ML SDV IVPUSH ONE (10:08)
[2020-07-13] MEDS ORDERED: Acetaminophen 500 MG Tab PO ONE (10:38)
--- NOTE | 2020-07-13 10:40 | EDM.PDOC ---
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 The patient states that she has irregular periods and that she took a home test approximately 2 weeks ago and is found to be . She states that she followed up with a primary care physician for which they did an hCG level. She states that she has not yet had a formal ultrasound or seen an nitroglycerin supervisor. She states that this morning she woke up and she started having some cramping and noticed that the toilet bowl was pink in color. She states that when she went to wipe she had a small quarter sized clot. She states that she is not excessively bleeding. She states that she has never had an ectopic . She denies any other symptoms such as dysuria or back pain. REVIEW OF SYSTEMS: Constitutional: Denies fever, chills. Eyes: Denies eye pain Ears, Nose, Mouth, & Throat: Denies earache Cardiovascular: Denies chest pain Respiratory: Denies shortness of breath Gastrointestinal: Denies Nausea, vomiting, diarrhea, hematochezia. Genitourinary: Positive for vaginal bleeding and hematuria. Denies dysuria or back pain Skin:Denies a rash Neurological: Denies blurred vision Psychiatric: Denies depression PAST MEDICAL HISTORY: As per history of present illness and as reviewed below otherwise noncontributory. SURGICAL HISTORY: As per history of present illness and as reviewed below otherwise noncontributory. LMP: Does not know, has irregular periods SOCIAL HISTORY: As per history of present illness and as reviewed below otherwise noncontributory. FAMILY HISTORY: As per history of present illness and as reviewed below otherwise noncontributory. EXAMINATION OF ORGAN SYSTEMS/BODY AREAS: Constitutional: Blood pressure is 163/91, heart rate 115, respiratory rate 18 with an oxygen saturation of 97% on room air. Temperature 37.7 General: Overall well-appearing woman who is in no acute distress. Psychiatric: Appropriate mood and affect. Eyes: No scleral icterus or conjunctival erythema ENMT: Moist mucous membranes. No pharyngeal erythema Cardiovascular: Tachycardic but regular no gallops, murmurs, or rubs. Bilateral upper extremity pulses symmetric and intact. No peripheral edema. No JVD. Respiratory: Lungs clear to auscultation bilaterally. No wheezes, rales, or rhonchi. Gastrointestinal: Soft, non-tender, non-distended. Normoactive bowel sounds Genitourinary: No suprapubic tenderness no CVA tenderness Musculoskeletal: Normal range of motion. Skin: No lesions or abrasions. Neurological: Alert, GCS 15 MEDICAL DECISION MAKING AND COURSE IN THE ED WITH INTERPRETATION/REVIEW OF DIAGNOSTIC STUDIES: This is a 25-year-old woman who is G6, P4 with 1 prior miscarriage at unknown gestational age who comes to the emergency department with vaginal bleeding and with cramps. Given that she is tachycardic I did perform a bedside OB ultrasound to evaluate for intrauterine and free fluid in the pelvis. Bedside ultrasound revealed a thickened endometrium with no obvious intrauterine . There is no free fluid in the pelvis. No heart rate could be obtained. We will obtain labs including CBC, BMP, qualitative hCG, hCG quantitative urine, type and screen, UA. We will also obtain an OB transvaginal ultrasound for evaluation of ectopic versus intrauterine . Also provide the patient with Tylenol for pain relief and give her Compazine and Benadryl she stated she is now nauseous. In addition I did review the patient's chart and her prior records indicate that she had an hCG level of 217 on July 08, 2020. It does not appear that there is a repeat hCG 48 hours later. Laboratory: CBC is unremarkable. BMP reveals hyponatremia otherwise unremarkable. Quantitative hCG is 1587. Type and screen reveals a negative Urinalysis was a clean catch and was negative for leukocyte esterase, negative for nitrites, and positive for blood. Interpretation: Negative. Blood is likely from vaginal bleeding hCG is positive. The radiological images were viewed by myself along with reading the report from the radiologist. Transvaginal ultrasound reveals findings equivocal for early intrauterine . There is a small anechoic fluid collection in the endometrial cavity which has a diameter of 3 mm which could yield a 5-week intrauterine gestation. No evidence of yolk sac. No free fluid. After labs and imaging I did discuss the results with the patient. I did discuss her at this time that it is uncertain if she has an intrauterine versus an ectopic . I did discuss with her that it is extremely important to follow-up within 48 hours for repeat hCG level for which I did write her a prescription for an outpatient laboratory repeat. We placed her on the list for quick follow-up with the obstetricians. She was amenable to discharge at this time and had no further questions. She was given strict return precautions. DISPOSITION: The patient was discharged home in stable condition. The patient will follow up with Andra Patton in 48 hours CONDITION: Fair PROCEDURES: None FINAL IMPRESSION(S)/DIAGNOSES: Acute threatened Kali Hunt M.D. - Related Data Allergies Allergy/AdvReac Type Severity Reaction Status Date / Time amoxicillin Allergy Anaphylactic Verified 07/13/20 09:30 Shock coconut Allergy Itching Uncoded 07/13/20 09:30 Home Meds: Home Meds Pnv No.103/Folic/Om3s/Fish Oil [ Gummies] 1 each PO DAILY 03/02/18 [History] Ondansetron [Zofran ODT] 4 mg PO Q4H PRN #10 tab.dis 05/18/18 [Rx] Sertraline [Zoloft] 25 mg PO DAILY 05/18/18 [History] Past Medical History - Past Health History Medical/Surgical History: Denies Medical/Surgical History HEENT History: Reports: None Cardiovascular History: Reports: Heart Murmur Other Cardiovascular History: hx of pre eclampsia Respiratory History: Reports: Asthma Gastrointestinal History: Reports: None Genitourinary History: Reports: None 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: Musculoskeletal History: Reports: None Neurological History: Reports: None Psychiatric History: Reports: Anxiety, Depression Endocrine/Metabolic History: Reports: None Hematologic History: Reports: Other (See Below) Other Hematologic History: hx of hemorrhage Immunologic History: Reports: None Oncologic (Cancer) History: Reports: None Dermatologic History: Reports: None - Infectious Disease History Infectious Disease History: Reports: Chicken Pox, MRSA - Past Surgical History Head Surgeries/Procedures: Reports: None HEENT Surgical History: Reports: Oral Surgery, Tonsillectomy Cardiovascular Surgical History: Reports: None Respiratory Surgical History: Reports: None GI Surgical History: Reports: None Female Surgical History: Reports: None Endocrine Surgical History: Reports: None Neurological Surgical History: Reports: None Musculoskeletal Surgical History: Reports: None Oncologic Surgical History: Reports: None Dermatological Surgical History: Reports: None Social & Family History - Family History Family Medical History: No Pertinent Family History HEENT: Reports: None OBGYN: Reports: - Tobacco Use Tobacco Use Status *Q: Current Every Day Tobacco User Years of Tobacco use: 8 Packs/Tins Daily: 0.3 - Caffeine Use Caffeine Use: Reports: Coffee - Recreational Drug Use Recreational Drug Use: No ED ROS GENERAL - Review of Systems Review Of Systems: See Below ED EXAM - Physical Exam Exam: See Below Course - Vital Signs Last Recorded V/S: Last Vital Signs Temp 37.4 C 07/13/20 13:16 Pulse 99 07/13/20 13:16 Resp 16 07/13/20 13:16 BP 119/81 07/13/20 13:16 Pulse Ox 95 07/13/20 13:16 - Orders/Labs/Meds Labs: Laboratory Tests 07/13/20 07/13/20 07/13/20 Range/Units 09:18 09:18 09:56 WBC 6.03 (4.0-11.0) K/uL RBC 4.33 (4.30-5.90) M/uL Hgb 13.6 (12.0-16.0) g/dL Hct 39.6 (36.0-46.0) % MCV 91.5 (80.0-98.0) fL MCH 31.4 (27.0-32.0) pg MCHC 34.3 (31.0-37.0) g/dL RDW Std Deviation 44.8 (28.0-62.0) fl RDW Coeff of Adria 13 (11.0-15.0) % Plt Count 220 (150-400) K/uL MPV 10.00 (7.40-12.00) fL Neut % (Auto) 75.4 (48.0-80.0) % Lymph % (Auto) 16.3 (16.0-40.0) % Chase % (Auto) 7.5 (0.0-15.0) % Eos % (Auto) 0.3 (0.0-7.0) % Baso % (Auto) 0.5 (0.0-1.5) % Neut # (Auto) 4.6 (1.4-5.7) K/uL Lymph # (Auto) 1.0 (0.6-2.4) K/uL Chase # (Auto) 0.5 (0.0-0.8) K/uL Eos # (Auto) 0.0 (0.0-0.7) K/uL Baso # (Auto) 0.0 (0.0-0.1) K/uL Nucleated RBC % 0.0 /100WBC Nucleated RBCs # 0 K/uL Sodium (136-145) mmol/L Potassium (3.5-5.1) mmol/L Chloride (98-107) mmol/L Carbon Dioxide (21.0-32.0) mmol/L BUN (7.0-18.0) mg/dL Creatinine (0.6-1.0) mg/dL Est Cr Clr Drug Dosing mL/min Estimated GFR (MDRD) ml/min Glucose (74-106) mg/dL Calcium (8.5-10.1) mg/dL HCG, Quant mIU/mL Urine Color YELLOW Urine Appearance CLEAR Urine pH 5.5 (5.0-8.0) Ur Specific Monroe >= 1.030 (1.001-1.035) Urine Protein NEGATIVE (NEGATIVE) mg/dL Urine Glucose (UA) NEGATIVE (NEGATIVE) mg/dL Urine Ketones NEGATIVE (NEGATIVE) mg/dL Urine Occult Blood MODERATE H (NEGATIVE) Urine Nitrite NEGATIVE (NEGATIVE) Urine Bilirubin NEGATIVE (NEGATIVE) Urine Urobilinogen 0.2 (<2.0) EU/dL Ur Leukocyte Esterase NEGATIVE (NEGATIVE) Urine RBC 6-8 (0-2/HPF) Urine WBC 0-2 (0-5/HPF) Ur Epithelial Cells FEW (NONE-FEW) Urine Bacteria FEW (NEGATIVE) Urine HCG, Qual POSITIVE (NEGATIVE) Blood Type Antibody Screen 07/13/20 07/13/20 Range/Units 09:56 09:56 WBC (4.0-11.0) K/uL RBC (4.30-5.90) M/uL Hgb (12.0-16.0) g/dL Hct (36.0-46.0) % MCV (80.0-98.0) fL MCH (27.0-32.0) pg MCHC (31.0-37.0) g/dL RDW Std Deviation (28.0-62.0) fl RDW Coeff of Adria (11.0-15.0) % Plt Count (150-400) K/uL MPV (7.40-12.00) fL Neut % (Auto) (48.0-80.0) % Lymph % (Auto) (16.0-40.0) % Chase % (Auto) (0.0-15.0) % Eos % (Auto) (0.0-7.0) % Baso % (Auto) (0.0-1.5) % Neut # (Auto) (1.4-5.7) K/uL Lymph # (Auto) (0.6-2.4) K/uL Chase # (Auto) (0.0-0.8) K/uL Eos # (Auto) (0.0-0.7) K/uL Baso # (Auto) (0.0-0.1) K/uL Nucleated RBC % /100WBC Nucleated RBCs # K/uL Sodium 135 L (136-145) mmol/L Potassium 3.9 (3.5-5.1) mmol/L Chloride 104 (98-107) mmol/L Carbon Dioxide 21.2 (21.0-32.0) mmol/L BUN 8 (7.0-18.0) mg/dL Creatinine 0.7 (0.6-1.0) mg/dL Est Cr Clr Drug Dosing 100.74 mL/min Estimated GFR (MDRD) > 60.0 ml/min Glucose 97 (74-106) mg/dL Calcium 9.2 (8.5-10.1) mg/dL HCG, Quant 1587.0 mIU/mL Urine Color Urine Appearance Urine pH (5.0-8.0) Ur Specific Monroe (1.001-1.035) Urine Protein (NEGATIVE) mg/dL Urine Glucose (UA) (NEGATIVE) mg/dL Urine Ketones (NEGATIVE) mg/dL Urine Occult Blood (NEGATIVE) Urine Nitrite (NEGATIVE) Urine Bilirubin (NEGATIVE) Urine Urobilinogen (<2.0) EU/dL Ur Leukocyte Esterase (NEGATIVE) Urine RBC (0-2/HPF) Urine WBC (0-5/HPF) Ur Epithelial Cells (NONE-FEW) Urine Bacteria (NEGATIVE) Urine HCG, Qual (NEGATIVE) Blood Type A NEGATIVE Antibody Screen NEGATIVE Meds: Medications Discontinued Medications Generic Name Dose Route Start Last Admin Trade Name Jonn PRN Reason Stop Dose Admin Acetaminophen 1,000 mg 07/13/20 10:38 07/13/20 11:09 Tylenol Extra Strength PO 07/13/20 10:39 1,000 mg ONETIME ONE Administration Diphenhydramine HCl 25 mg 07/13/20 10:08 07/13/20 10:24 Benadryl IVPUSH 07/13/20 10:09 25 mg ONETIME ONE Administration Prochlorperazine Edisylate 5 mg 07/13/20 10:06 07/13/20 10:24 Compazine IVPUSH 07/13/20 10:07 5 mg ONETIME ONE Administration Departure - Departure Time of Disposition: 12:46 Disposition: Home, Self-Care 01 Condition: Fair Clinical Impression: Threatened in early - Discharge Information *PRESCRIPTION DRUG MONITORING PROGRAM REVIEWED*: No *COPY OF PRESCRIPTION DRUG MONITORING REPORT IN PATIENT AGUILA: No Instructions: Threatened Miscarriage, [id number] Referrals: PCP,Jaiden [Primary Care Provider] - 2 Days Cameron Lima MD [Physician] - 2 Days Forms: ED Department Discharge Additional Instructions: Your evaluated today on an emergent basis. At this time you are experiencing a threatened miscarriage. We were unable to find a on ultrasound. Therefore it is important that she follow-up here for a repeat hCG level on July 15, 2020. In addition please make an appointment with your nitroglycerin supervisor within 2 to 3 days. They will be receiving the results. Return for any new or worsening symptoms such as worsening bleeding or pain. [facility] [address] [place] [id number] [facility] [address] [place] [id number] The patient is informed of any results of their evaluation and diagnostic workup and all questions are answered. They are given discharge instructions and return precautions. The patient is stable for discharge. The patient states they understand and agree with the plan and that they will return if their symptoms get worse or if they have any new concerns. The following information is given to patients seen in the emergency department who are being discharged to home. This information is to outline your options for follow-up care. We provide all patients seen in our emergency department with a follow-up referral. The need for follow-up, as well as the timing and circumstances, are variable depending upon the specifics of your emergency department visit. If you don't have a primary care physician on staff, we will provide you with a referral. We always advise you to contact your personal physician following an emergency department visit to inform them of the circumstance of the visit and for follow-up with them and/or the need for any referrals to a consulting specialist. The emergency department will also refer you to a specialist when appropriate. This referral assures that you have the opportunity for follow-up care with a specialist. All of these measure are taken in an effort to provide you with optimal care, which includes your follow-up. Under all circumstances we always encourage you to contact your private physician who remains a resource for coordinating your care. When calling for follow-up care, please make the office aware that this follow-up is from your recent emergency room visit. If for any reason you are refused follow-up, please contact the [facility] Emergency Department at and asked to speak to the emergency department charge nurse. Sepsis Event Note (ED) - Evaluation Sepsis Screening Result: No Definite Risk
[2020-07-13 10:59] LABS: BLOOD UREA NITROGEN,BUN 8 mg/dL (7.0-18.0); CARBON DIOXIDE,CO2 21.2 mmol/L (21.0-32.0); CHLORIDE,CL 104 mmol/L (98-107); GLUCOSE RANDOM 97 mg/dL (74-106); POTASSIUM,K 3.9 mmol/L (3.5-5.1); SODIUM,NA 135 mmol/L (136-145)
--- NOTE | 2020-07-13 12:12 | US ---
INDICATION: Pain. . FINDINGS: Transvaginal imaging. Uterus is 9 x 4 x5 cm. Small anechoic fluid collection in the endometrial cavity has a diameter of 3 mm which would yield 5 week intrauterine gestation. No pole yolk sac. Endometrial thickness is 11 mm. Well-defined junctional zone. No fluid in the peritoneum. Irregularly margined cyst in the left ovary with measuring 18 x 12 mm. Anechoic appearance centrally. Normal color and spectral Doppler blood flow the left ovary. Small echogenic foci in the right ovary may be collapsing hemorrhagic cysts or less likely early small dermoid cysts. No shadowing. Normal color and spectral Doppler blood flow. IMPRESSION: Findings equivocal for early intrauterine . Laboratory follow-up recommended. Repeat imaging as clinically indicated. Dictated by Epifanio Young MD @ Jul 13 2020 12:10PM Signed by Dr. Epifanio Young @ Jul 13 2020 12:10PM
[2020-07-13 13:50] VITALS: BP 119/81; PULSE 99
--- NOTE | 2020-07-14 20:33 | PCM.SN.2 ---
- Free Text/Narrative Note: On review of the patient's chart the patient is A- and should have received RhoGam. I contacted her obstetricians group and spoke with Dr. Pacheco. RhoGam should be administered within 72 hours. They stated that they had contacted her regarding follow-up already. They stated that they would contact her tomorrow to receive RhoGam. I contacted the patient and she stated that she was still having some pelvic pain but denied any further vaginal bleeding. She stated that she did get a call from the [employer] operator office. I did discuss there at this time that she does need RhoGam and that they be calling her tomorrow. I discussed with her that if they were unable to see her by the evening tomorrow that she needs to come to the emergency department to receive RhoGam. She is to return to the emergency department for any new or worsening symptoms. She was amenable to this plan and had no further questions.
== END 2020-07-13 13:16 | disposition home or self-care (01) ==
LOC: MW.ED 09:13
DX: O20.0 Threatened abortion (principal); O99.511 Diseases of the respiratory system complicating pregnancy, first trimester; J45.909 Unspecified asthma, uncomplicated; Z91.018 Allergy to other foods; Z88.0 Allergy status to penicillin; Z72.0 Tobacco use; Z3A.10 10 weeks gestation of pregnancy
CPT/HCPCS: 36415; 76817; 80048; 81001; 81025; 84702; 85025; 86850; 86900; 86901; 96374; 96375; 99284; A9270; J0780; J1200; 99283

== ENCOUNTER 2021-01-12 07:24 | Emergency (ER) | payer MEDICAID, OTHER ==
--- NOTE | 2021-01-12 07:27 | EDM.PDOC ---
ED HPI GENERAL MEDICAL PROBLEM - General Stated Complaint: RIGHT ANKLE INJURY Time Seen by Provider: 01/12/21 07:26 - History of Present Illness INITIAL COMMENTS - FREE TEXT/NARRATIVE: 25-year-old female with no significant past history presenting with acute left ankle pain. This morning patient missed a step while taking her dog out. She fell and if she fell she twisted her ankle felt a pop. Now 7 out of 10 pain in the left ankle worsens with ambulation and attempted range of motion. She did not strike her head no other complaints or symptoms. L Foot Pain Score (Numeric/FACES): 7 - Related Data Allergies Allergy/AdvReac Type Severity Reaction Status Date / Time amoxicillin Allergy Anaphylactic Verified 01/12/21 07:32 Shock coconut Allergy Itching Uncoded 01/12/21 07:32 Home Meds: Home Meds LORazepam [Ativan] 0.5 mg PO DAILY 01/12/21 [History] Venlafaxine [Effexor] 25 mg PO DAILY 01/12/21 [History] Past Medical History - Past Health History Medical/Surgical History: Denies Medical/Surgical History HEENT History: Reports: None Cardiovascular History: Reports: Heart Murmur Other Cardiovascular History: hx of pre eclampsia Respiratory History: Reports: Asthma Gastrointestinal History: Reports: None Genitourinary History: Reports: None [employer]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: Musculoskeletal History: Reports: None Neurological History: Reports: None Psychiatric History: Reports: Anxiety, Depression Endocrine/Metabolic History: Reports: None Hematologic History: Reports: Other (See Below) Other Hematologic History: hx of hemorrhage Immunologic History: Reports: None Oncologic (Cancer) History: Reports: None Dermatologic History: Reports: None - Infectious Disease History Infectious Disease History: Reports: Chicken Pox, MRSA - Past Surgical History Head Surgeries/Procedures: Reports: None HEENT Surgical History: Reports: Oral Surgery, Tonsillectomy Cardiovascular Surgical History: Reports: None Respiratory Surgical History: Reports: None GI Surgical History: Reports: None Female Surgical History: Reports: None Endocrine Surgical History: Reports: None Neurological Surgical History: Reports: None Musculoskeletal Surgical History: Reports: None Oncologic Surgical History: Reports: None Dermatological Surgical History: Reports: None Social & Family History - Family History Family Medical History: No Pertinent Family History HEENT: Reports: None OBGYN: Reports: - Caffeine Use Caffeine Use: Reports: Coffee ED ROS GENERAL - Review of Systems Review Of Systems: See Below Free Text/Narrative/Comment: Neck: No neck stiffness. Musculoskeletal: Per HPI Neurologic: No headache. ED EXAM, GENERAL - Physical Exam Exam: See Below Free Text/Narrative:: General Appearance: No acute distress, appears comfortable Skin: No rash HEENT: Normocephalic/atraumatic, sclera anicteric, mucous membranes moist Neck: Normal range of motion Musculoskeletal: 2+ left DP pulse, no proximal fibula tenderness, some tenderness and swelling over the lateral malleolus some tenderness over the medial malleolus as well. Digits neurovascularly intact and patient with good range of motion of the digits but unable to tolerate any range of motion of the left ankle. Neurologic: Awake, alert, no obvious deficits, moving all extremities Psychiatric: Appropriate, cooperative Course - Vital Signs Last Recorded V/S: Last Vital Signs Temp 97.4 F 01/12/21 07:33 Pulse 80 01/12/21 07:33 Resp 17 01/12/21 07:33 BP 127/77 01/12/21 07:33 Pulse Ox 97 01/12/21 07:33 - Orders/Labs/Meds Orders: Active Orders 24 hr Category Date Time Status DME for Discharge [COMM] Stat Oth 01/12/21 08:15 Ordered Meds: Medications Discontinued Medications Generic Name Dose Route Start Last Admin Trade Name Jonn PRN Reason Stop Dose Admin Hydrocodone Bitart/Acetaminophen 1 tab 01/12/21 07:46 01/12/21 07:53 Acetaminophen/Hydrocodone 325-5 Mg Tab PO 01/12/21 07:47 1 tab ONETIME ONE Administration Departure - Departure Time of Disposition: 08:16 Disposition: Home, Self-Care 01 Condition: Good Clinical Impression: Sprain of left ankle - Discharge Information *PRESCRIPTION DRUG MONITORING PROGRAM REVIEWED*: Not Applicable *COPY OF PRESCRIPTION DRUG MONITORING REPORT IN PATIENT AGUILA: Not Applicable Instructions: Ankle Sprain, Elastic Bandage and RICE Therapy Referrals: Nathalie Neely NP [Primary Care Provider] - Additional Instructions: Your x-ray today did not show any broken bones in your ankle. Please use the devonte wrap and air cast for at least the next several days to help with the swelling and pain. Please do not wear the devonte wrap at night. You can use tylenol and ibuprofen for pain control as you need to. Please do not take more than is directed on the bottle. Severe ankle sprains can sometimes take a few weeks to heal. Please follow-up with your primary care doctor if you symptoms have not improved by next Tuesday. The following information is given to patients seen in the emergency department who are being discharged to home. This information is to outline your options for follow-up care. We provide all patients seen in our emergency department with a follow-up referral. The need for follow-up, as well as the timing and circumstances, are variable depending upon the specifics of your emergency department visit. If you don't have a primary care physician on staff, we will provide you with a referral. We always advise you to contact your personal physician following an emergency department visit to inform them of the circumstance of the visit and f or follow-up with them and/or the need for any referrals to a consulting specialist. The emergency department will also refer you to a specialist when appropriate. This referral assures that you have the opportunity for follow-up care with a specialist. All of these measure are taken in an effort to provide you with optimal care, which includes your follow-up. Under all circumstances we always encourage you to contact your private physician who remains a resource for coordinating your care. When calling for follow-up care, please make the office aware that this follow-up is from your recent emergency room visit. If for any reason you are refused follow-up, please contact the [facility] Emergency Department at and asked to speak to the emergency department charge nurse. Sepsis Event Note (ED) - Focused Exam Vital Signs: Vital Signs Temp Pulse Resp BP Pulse Ox 01/12/21 07:33 97.4 F 80 17 127/77 97 - My Orders Last 24 Hours: My Active Orders 01/12/21 08:15 DME for Discharge [COMM] Stat - Assessment/Plan Last 24 Hours: My Active Orders 01/12/21 08:15 DME for Discharge [COMM] Stat Assessment:: 25-year-old female presenting with signs and symptoms most consistent with left ankle sprain versus fracture. Extremity neurovascularly intact patient is not driving home. [place] for pain x-ray pending. XR negative for acute fracture. Devonte Wrap and Aircast applied. Will provide crutches if needed. Pt will f/u with PCP. Anticipatory guidance provided instructions for initial care provided and understood.
[2021-01-12] MEDS ORDERED: Acetaminophen/HYDROcodone 325-5 MG Tab PO ONE (07:46)
--- NOTE | 2021-01-12 08:09 | CR ---
Indication: Fall Comparison: Three views left ankle February 15, 2019 Technique: AP, Lateral, and Oblique views left ankle were obtained Findings: There is no displaced fracture or dislocation. The ankle mortise is symmetrical. The talar dome is smooth and intact. The joint spaces are otherwise grossly preserved. There is moderate lateral malleolar soft tissue swelling. Impression: Moderate lateral malleolar soft tissue swelling without evidence of definite displaced fracture. Dictated by Yonatan Ortiz MD @ 01/12/2021 8:07:[address] Yonatan Ortiz @ Jan 12 2021 8:07AM
[2021-01-12 08:36] VITALS: BP 120/69; PULSE 68
== END 2021-01-12 08:39 | disposition home or self-care (01) ==
LOC: MW.ED 07:24
DX: S93.402A Sprain of unspecified ligament of left ankle, initial encounter (principal); Z88.0 Allergy status to penicillin; Z91.018 Allergy to other foods; X50.1XXA Overexertion from prolonged static or awkward postures, initial encounter
CPT/HCPCS: 73610; 99283; A9270

== ENCOUNTER 2021-07-09 07:49 | Day surgery (SDC) | payer MEDICAID ==
[~2021-07-09 07:49] MED LIST: Lactated Ringers 1,000 ML IV SCH; Lidocaine 2% 5 ML SDV ONE; Midazolam 1 MG/ML 2 ML SDV ONE; Propofol 200 MG/20 ML SDV ONE; Sodium Chloride 0.9% 10 ML Syringe FLUSH PRN; Sodium Chloride 0.9% 2.5 ML Syringe FLUSH PRN; Sodium Chloride 0.9% 20 ML SDV IV PRN; fentaNYL 100 MCG/2 ML SDV ONE
[2021-07-09] MEDS ORDERED: Propofol 200 MG/20 ML SDV ONE (09:25)
[2021-07-09 12:55] VITALS: BP 116/74; PULSE 63
== END 2021-07-09 10:03 | disposition home or self-care (01) ==
LOC: MW.SDS 07:49
PROVIDERS: ATTEND Surgery
DX: K29.50 Unspecified chronic gastritis without bleeding (principal); K21.9 Gastro-esophageal reflux disease without esophagitis; K44.9 Diaphragmatic hernia without obstruction or gangrene; F32.A Depression, unspecified; E66.9 Obesity, unspecified; F17.210 Nicotine dependence, cigarettes, uncomplicated; Z88.1 Allergy status to other antibiotic agents; Z79.899 Other long term (current) drug therapy; Z98.890 Other specified postprocedural states; Z68.34 Body mass index [BMI] 34.0-34.9, adult
CPT/HCPCS: 43239; 81025; J2250; J2704; J3010; J7120; 00731

== ENCOUNTER 2021-09-28 04:37 | Emergency (ER) | payer BC, MEDICAID ==
[2021-09-28] MEDS ORDERED: Aspirin 81 MG Tab.Chew PO ONE (04:58)
[2021-09-28] MEDS ORDERED: Famotidine 20 MG/2 ML SDV IVPUSH ONE (04:58)
[2021-09-28] MEDS ORDERED: Alum Hydro/Mag Hydro/Simeth XS 15 ML, Lidocaine 2% 5 ML PO ONE ×2 (04:59)
[2021-09-28] MEDS ORDERED: Diazepam 5 MG Tab PO ONE (05:02)
[2021-09-28 05:35] LABS: BLOOD UREA NITROGEN,BUN 7 mg/dL (7.0-18.0); CARBON DIOXIDE,CO2 22.5 mmol/L (21.0-32.0); CHLORIDE,CL 104 mmol/L (98-107); GLUCOSE RANDOM 104 mg/dL (74-106); POTASSIUM,K 4.3 mmol/L (3.5-5.1); SODIUM,NA 137 mmol/L (136-145)
[2021-09-28 06:22] VITALS: BP 122/79; PULSE 72
== END 2021-09-28 06:20 | disposition home or self-care (01) ==
LOC: MW.ED 04:37
DX: R07.89 Other chest pain (principal); F41.9 Anxiety disorder, unspecified; F31.9 Bipolar disorder, unspecified; Z88.0 Allergy status to penicillin; Z91.018 Allergy to other foods
CPT/HCPCS: 36415; 71045; 80053; 84484; 84703; 85025; 85379; 93005; 96374; 99285; A9270; J3490; 93010; 99283

== ENCOUNTER 2021-11-17 08:58 | Day surgery (SDC) | payer MEDICAID ==
[~2021-11-17 08:58] MED LIST changes: -Lidocaine 2% 5 ML SDV ONE; -Midazolam 1 MG/ML 2 ML SDV ONE; -Propofol 200 MG/20 ML SDV ONE; -Sodium Chloride 0.9% 10 ML Syringe FLUSH PRN; -Sodium Chloride 0.9% 2.5 ML Syringe FLUSH PRN; -Sodium Chloride 0.9% 20 ML SDV IV PRN; -fentaNYL 100 MCG/2 ML SDV ONE
[2021-11-17] MEDS ORDERED: HYDROmorphone 1 MG/ML Syringe IVPUSH PRN (09:11)
[2021-11-17] MEDS ORDERED: Metoclopramide 10 MG/2 ML SDV IVPUSH PRN (09:11)
[2021-11-17] MEDS ORDERED: Naloxone 0.4 MG/ML SDV IVPUSH PRN (09:11)
[2021-11-17] MEDS ORDERED: fentaNYL 100 MCG/2 ML SDV IVPUSH PRN (09:11)
[2021-11-17] MEDS ORDERED: Ondansetron 4 MG/2 ML SDV IVPUSH PRN (09:11)
[2021-11-17] MEDS ORDERED: Morphine 4 MG/ML VIAL IVPUSH PRN (09:11)
[2021-11-17] MEDS ORDERED: Albuterol 0.083% 2.5 MG/3 ML Neb Soln NEB PRN (09:11)
[2021-11-17] MEDS ORDERED: Propofol 200 MG/20 ML SDV ONE ×3 (09:19→11:30)
[2021-11-17] MEDS ORDERED: Midazolam 1 MG/ML 2 ML SDV ONE (10:05)
[2021-11-17] MEDS ORDERED: fentaNYL 100 MCG/2 ML SDV ONE (10:05)
[2021-11-17] MEDS ORDERED: Ketamine 500 mg/10 ML MDV ONE (10:09)
[2021-11-17] MEDS ORDERED: Bupivacaine 0.5% 30 ML SDV ONE (10:23)
[2021-11-17] MEDS ORDERED: Octyl 2-Cyanoacrylate 1 Tube ONE (10:23)
[2021-11-17] MEDS ORDERED: Indocyanine Green 25 MG SDV ONE (10:51)
[2021-11-17] MEDS ORDERED: Water For Injection, Sterile 20 ML ONE (10:56)
[2021-11-17] MEDS ORDERED: Sugammadex Sodium 200 MG/2 ML VIAL ONE (11:28)
[2021-11-17] MEDS ORDERED: Ondansetron 4 MG/2 ML SDV ONE (11:28)
[2021-11-17] MEDS ORDERED: Ketorolac 30 MG/ML SDV ONE (11:28)
[2021-11-17 13:33] VITALS: BP 123/59; PULSE 55
== END 2021-11-17 13:45 | disposition home or self-care (01) ==
LOC: MW.SDS 08:58
PROVIDERS: ATTEND Surgery
DX: K80.10 Calculus of gallbladder with chronic cholecystitis without obstruction (principal); K42.9 Umbilical hernia without obstruction or gangrene; F41.0 Panic disorder [episodic paroxysmal anxiety]; E55.9 Vitamin D deficiency, unspecified; F32.A Depression, unspecified; K21.9 Gastro-esophageal reflux disease without esophagitis; F17.210 Nicotine dependence, cigarettes, uncomplicated; E66.9 Obesity, unspecified; Z88.0 Allergy status to penicillin; Z91.018 Allergy to other foods; Z79.899 Other long term (current) drug therapy; Z68.34 Body mass index [BMI] 34.0-34.9, adult
CPT/HCPCS: 47562; 49585; 81025; A9270; J0131; J0690; J1170; J1885; J2250; J2405; J2704; J3010; J3490; J7120